=== PATIENT | female | born 1990 | race Caucasian/White ===

== ENCOUNTER 2016-08-19 21:35 | Inpatient (IN) | payer MEDICAID ==
[~2016-08-19] VITALS: Ht 154.9 cm; Wt 41.8 kg
[~2016-08-19 21:35] MED LIST: HUMALOG KW100 UNIT/1 SQ; HUMALOG MIX75/253 ML SC; HUMALOG100 U/M1; HUMULIN N PE100 U/ML SC; HUMULIN10 ML SC; KEFLEX 500MG.500 MG PO; LEVEMIR100 U/M2 SC; NORCO 325 MG-51 TAB PO; NOVOLOG MI100 UNITS1 SC; PROMETHAZINE12.5 M1 PO; PYRIDIUM 200MG200 MG PO; SEPTRA DS 800 M1 TAB PO
[2016-08-19 21:38] VITALS: BP 142/95
[2016-08-19 22:12] LABS: ARTERIAL ABE -20.1 MMOL/L (-2.4-+2.3); ARTERIAL PO2 124.1 MMHG (80-100); ARTERIAL TCO2 7.4 MMOL/L (23-27)
[2016-08-19 22:13] LABS: ALLEN'S TEST ACCEPTABLE; OXYGEN ROOM AIR
[2016-08-19 22:26] LABS: HEMOGLOBIN 13.8 g/dL (12.2-16.2); LYMPH # 0.8 K/mm3 (0.7-4.5); LYMPH % 8.7 % (10-50.0)
[2016-08-19 23:04] LABS: URINE BILIRUBIN - DIPSTICK NEGATIVE (NEG); URINE BLOOD 1+ (NEG)
[2016-08-19 23:09] LABS: NEUTROPHILS 85 % (42-76)
--- NOTE | 2016-08-19 23:09 | Emergency Room Report ---
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 N Clinical Suspician of Infection? N Mental Status: 1 - Regular (Normal Baseline) Sepsis Risk:Possible Sepsis Risk Have you (or family members/close friends) recently traveled outside the [place]? N If Yes, where/when: Have you had exposure to infectious disease within the past month? N TB? Other? Specify: Source patient, RN notes reviewed, family, old records Exam Limitations no limitations Comment vomiting today with dec po intake in this wf who is iddm Cardiac Chest Pain Chest pain indicative of cardiac No Timing/Duration this evening Severity moderate ALLERGIES Coded Allergies: aspirin (ITCHING 04/22/16) Home Medications Active Scripts HYDROCODONE/ACETAMINOPHEN ([place] 5-325 Tablet) 1 TAB PO BIDP PRN BREAKTHROUGH MOD TO SEV PAIN 2 Days Prov: 07/06/16 Reported Medications INSULIN NPL/INSULIN LISPRO (Humalog Mix 75-25 Kwikpen) 10 UNITS SC QAM #30 INSULIN NPL/INSULIN LISPRO (Humalog Mix 75-25 Kwikpen) 8 UNITS SC NIGHT ONLY Insulin Lispro (Humalog Kwikpen) 100 UNIT SQ Q2H #15 History Medical History General CAD? No Angina: No [place]: No Hypertension? No Hyperlipidemia? No CHF? No DVT? No PE? No COPD? No Asthma? No Anemia? No GERD? No Gastric ulcers? No GI Bleed? No Hernia? No Thyroid Problems? No Hypothyroidism? No CVA? No Seizures? No Diabetes? Yes Insulin Dependent: Yes Insulin Pump: No Home FSBS? Yes Renal Insuffiency? No End Stage Renal Disease? No UTI? Yes Stones? No GB Disease: No Nephritic Syndrome? No Asplenia? No Hepatitis? No Sickle Cell Disease? No Arthritis? No Migraines? No Cataracts? No Glaucoma? No MRSA? No HIV? No TB? No Anxiety? No Depression? No Cancer? No More? 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 Respiratory denies cough, denies shortness of breath, denies wheezing Cardiovascular denies chest pain, denies syncope Gastrointestinal see HPI, abdominal pain, denies diarrhea, denies vomiting Genitourinary denies: dysuria, frequency, hesitancy, hematuria. Musculoskeletal denies back pain, denies joint pain, denies joint swelling, denies neck pain Skin denies rash Psychiatric/Neurological denies headache, denies seizure Physical Exam Vital Signs Vital Signs Date Time Temp Pulse Resp B/P Pulse O2 O2 Flow FiO2 Ox Delivery Rate 08/20 0014 132 20 142/99 98 08/19 2341 132 20 135/91 100 08/19 2246 131 20 144/95 96 08/19 2138 98.6 130 20 142/95 100 - WBC >12,000 or <4,000 or 10% bands? 2 or more SIRS Criteria Met? B/P:142/99 MAP:110 Creatinine >2.0? UA output<0.5ml/kg/hr for 2 hrs? Platelet count >100,000? Lactate >2.0mmol/1? INR >1.2 or PTT > than 60 sec? Evidence of Organ Dysfunction? Provider documented clinical suspician of infection? N Sepsis Criteria Count: 2 Sepsis Risk: Possible Sepsis Risk General Appearance no apparent distress Eye Exam - bilateral eye PERRL, bilateral eye EOMI Ear, Nose, Throat normal ENT inspection Neck non-tender Respiratory Status No: respiratory distress. Lung Sounds bilateral: lungs clear. 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 No Results/Orders Laboratory Tests 08/19/166: Urine Color YELLOW, Urine Appearance CLEAR, Urine pH 6.0, Ur Specific [place] 1.025, Urine Protein 1+ H, Urine Ketones 3+ H, Urine Blood 1+ H, Urine Nitrate NEGATIVE, Urine Bilirubin NEGATIVE, Urine Urobilinogen 0.2, Ur Leukocyte Esterase 1+ H, Urine RBC 5-10, Urine WBC 5-10, Ur Squamous Epith Cells 3-5, Urine Bacteria 1+, Urine Mucus 1+, Urine Trichomonas 1+, Urine Glucose 2+ H 08/19/162215: Sodium 133 L, Potassium 6.2 *H, Chloride 93 L, Carbon Dioxide 13 L, BUN 11, Creatinine 1.0, Estimated Creat Clear 63, Estimated GFR (MDRD) 66, Glucose 519 * H, Calcium 9.4, Total Bilirubin 0.6, AST 74 H, ALT 100 H, Alkaline Phosphatase 285 H, Total Protein 8.3 H, Albumin 3.4, Globulin 4.9 H, Albumin/Globulin Ratio 0.7 L, WBC 9.4, RBC 4.57, Hgb 13.8, Hct 45.3, MCV 99.0 H, RDW 13.4, Plt Count 369, MPV 9.0, Gran % 89.4 H, Gran # 8.4 H, Total Counted 100, Lymphocytes % 8.7 L, Monocytes % 1.5 L, Eosinophils % 0.2, Basophils % 0.2, Neutrophils 85 H, Lymphocytes (Manual) 15, Lymphocytes # 0.8, Monocytes # 0.1, Eosinophils # 0.0, Basophils # 0.0, Platelet Estimate NORMAL, Anisocytosis 1+, PUBS MCHC 30.6 L, MCH 30.3, Acetone Level MODERATE 08/19/162206: ABG pH Pending, ABG pCO2 (Temp Corrct Pending, ABG pO2 (Temp Correct Pending, ABG HCO3 Pending, ABG O2 Sat (Calculated) Pending, ABG Base Excess Pending 08/19/162204: ABG pH 7.26 L, ABG pCO2 (Temp Corrct 15.7 L, ABG pO2 (Temp Correct 124.1 H, ABG HCO3 6.9 L, ABG Total CO2 7.4 L, ABG O2 Sat (Calculated) 98.0, ABG Base Excess -20.1 L, Nghia Test ACCEPTABLE, Blood Gas Comments RIGHT RADIAL Current Medication Orders Sig/Roberto Start time Last Medication Dose Route Stop Time Status Admin Ondansetron HCl 4 MG ONCE ONE 08/205 DC 08/20 IV 08/20 0016 0005 Ondansetron HCl 0 .STK-MED ONE 08/20 0001 DC .ROUTE Ondansetron HCl 4 MG ONCE ONE 08/19 2214 DC 08/19 IV 08/19 2215 221 Ondansetron HCl 0 .STK-MED ONE 08/19 2214 DC .ROUTE Sodium Chloride 10 ML PRN PRN 08/19 2199 AC IV 08/20 2147 Sodium Chloride 1,000 ML .Q1H1M 08/19 2199 DC 08/19 IV 08/19 Sodium Chloride 10 ML PRN PRN 08/19 2199 AC IV 08/20 2147 Orders Procedure Date/time Status URINALYSIS/COMPLETE 08/19 2258 Complete CULTURE, URINE 08/19 2255 Active DIFFERENTIAL-WBC 08/19 2215 Complete Acetone, Serum 08/19 2155 Complete 12 LEAD EKG-BESSON (INITIAL) 08/19 2149 Active ELECTROCARDIOGRAM REQUEST 08/19 2149 Active ARTERIAL BLOOD GAS REQUEST 08/19 2149 Active IV SALINE LOCK 08/19 2149 Active FSBS REQUEST BY CARE AREA 08/19 2149 Active CBC WITH AUTO DIFF 08/19 2149 Complete CHEM 12 PROFILE 08/19 2149 Complete CM/EKG CM/pipe coverer Rhythm Sinus Tachycardia EKG non-spec. ST/Twave chgs Departure Departure Time of Disposition 2307 Disposition Still a Patient Clinical Impression Primary Impression: DKA (diabetic ketoacidoses) Qualifiers: Diabetes mellitus type: type 1 Diabetes mellitus complication detail: without coma Qualified Code: E10.10 - Type 1 diabetes mellitus with ketoacidosis without coma Secondary Impressions: Diabetes mellitus, insulin dependent (IDDM), controlled Condition STABLE Referrals FRANCI JACK, NUVIA (Family) ED Critical Care Critical Care Yes Time spent 30-74 min Vital system(s) involved: Metabolic Failure I was present at bedside for Coordinating pt's care, Interpreting EKGs/Strips , Reviewing lab results, Discussing pt condition at 0018
--- NOTE | 2016-08-19 23:09 | Emergency Room Report ---
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 N Clinical Suspician of Infection? N Mental Status: 1 - Regular (Normal Baseline) Sepsis Risk:Possible Sepsis Risk Have you (or family members/close friends) recently traveled outside the [place]? N If Yes, where/when: Have you had exposure to infectious disease within the past month? N TB? Other? Specify: Source patient, RN notes reviewed, family, old records Exam Limitations no limitations Comment vomiting today with dec po intake in this wf who is iddm Cardiac Chest Pain Chest pain indicative of cardiac No Timing/Duration this evening Severity moderate ALLERGIES Coded Allergies: aspirin (ITCHING 04/22/16) Home Medications Active Scripts HYDROCODONE/ACETAMINOPHEN ([place] 5-325 Tablet) 1 TAB PO BIDP PRN BREAKTHROUGH MOD TO SEV PAIN 2 Days Prov: 07/06/16 Reported Medications INSULIN NPL/INSULIN LISPRO (Humalog Mix 75-25 Kwikpen) 10 UNITS SC QAM #30 INSULIN NPL/INSULIN LISPRO (Humalog Mix 75-25 Kwikpen) 8 UNITS SC NIGHT ONLY Insulin Lispro (Humalog Kwikpen) 100 UNIT SQ Q2H #15 History Medical History General CAD? No Angina: No [place]: No Hypertension? No Hyperlipidemia? No CHF? No DVT? No PE? No COPD? No Asthma? No Anemia? No GERD? No Gastric ulcers? No GI Bleed? No Hernia? No Thyroid Problems? No Hypothyroidism? No CVA? No Seizures? No Diabetes? Yes Insulin Dependent: Yes Insulin Pump: No Home FSBS? Yes Renal Insuffiency? No End Stage Renal Disease? No UTI? Yes Stones? No GB Disease: No Nephritic Syndrome? No Asplenia? No Hepatitis? No Sickle Cell Disease? No Arthritis? No Migraines? No Cataracts? No Glaucoma? No MRSA? No HIV? No TB? No Anxiety? No Depression? No Cancer? No More? 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 Respiratory denies cough, denies shortness of breath, denies wheezing Cardiovascular denies chest pain, denies syncope Gastrointestinal see HPI, abdominal pain, denies diarrhea, denies vomiting Genitourinary denies: dysuria, frequency, hesitancy, hematuria. Musculoskeletal denies back pain, denies joint pain, denies joint swelling, denies neck pain Skin denies rash Psychiatric/Neurological denies headache, denies seizure Physical Exam Vital Signs Vital Signs Date Time Temp Pulse Resp B/P Pulse O2 O2 Flow FiO2 Ox Delivery Rate 08/20 0014 132 20 142/99 98 08/19 2341 132 20 135/91 100 08/19 2246 131 20 144/95 96 08/19 2138 98.6 130 20 142/95 100 - WBC >12,000 or <4,000 or 10% bands? 2 or more SIRS Criteria Met? B/P:142/99 MAP:110 Creatinine >2.0? UA output<0.5ml/kg/hr for 2 hrs? Platelet count >100,000? Lactate >2.0mmol/1? INR >1.2 or PTT > than 60 sec? Evidence of Organ Dysfunction? Provider documented clinical suspician of infection? N Sepsis Criteria Count: 2 Sepsis Risk: Possible Sepsis Risk General Appearance no apparent distress Eye Exam - bilateral eye PERRL, bilateral eye EOMI Ear, Nose, Throat normal ENT inspection Neck non-tender Respiratory Status No: respiratory distress. Lung Sounds bilateral: lungs clear. 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 No Results/Orders Laboratory Tests 08/19/166: Urine Color YELLOW, Urine Appearance CLEAR, Urine pH 6.0, Ur Specific [place] 1.025, Urine Protein 1+ H, Urine Ketones 3+ H, Urine Blood 1+ H, Urine Nitrate NEGATIVE, Urine Bilirubin NEGATIVE, Urine Urobilinogen 0.2, Ur Leukocyte Esterase 1+ H, Urine RBC 5-10, Urine WBC 5-10, Ur Squamous Epith Cells 3-5, Urine Bacteria 1+, Urine Mucus 1+, Urine Trichomonas 1+, Urine Glucose 2+ H 08/19/162215: Sodium 133 L, Potassium 6.2 *H, Chloride 93 L, Carbon Dioxide 13 L, BUN 11, Creatinine 1.0, Estimated Creat Clear 63, Estimated GFR (MDRD) 66, Glucose 519 * H, Calcium 9.4, Total Bilirubin 0.6, AST 74 H, ALT 100 H, Alkaline Phosphatase 285 H, Total Protein 8.3 H, Albumin 3.4, Globulin 4.9 H, Albumin/Globulin Ratio 0.7 L, WBC 9.4, RBC 4.57, Hgb 13.8, Hct 45.3, MCV 99.0 H, RDW 13.4, Plt Count 369, MPV 9.0, Gran % 89.4 H, Gran # 8.4 H, Total Counted 100, Lymphocytes % 8.7 L, Monocytes % 1.5 L, Eosinophils % 0.2, Basophils % 0.2, Neutrophils 85 H, Lymphocytes (Manual) 15, Lymphocytes # 0.8, Monocytes # 0.1, Eosinophils # 0.0, Basophils # 0.0, Platelet Estimate NORMAL, Anisocytosis 1+, PUBS MCHC 30.6 L, MCH 30.3, Acetone Level MODERATE 08/19/162206: ABG pH Pending, ABG pCO2 (Temp Corrct Pending, ABG pO2 (Temp Correct Pending, ABG HCO3 Pending, ABG O2 Sat (Calculated) Pending, ABG Base Excess Pending 08/19/162204: ABG pH 7.26 L, ABG pCO2 (Temp Corrct 15.7 L, ABG pO2 (Temp Correct 124.1 H, ABG HCO3 6.9 L, ABG Total CO2 7.4 L, ABG O2 Sat (Calculated) 98.0, ABG Base Excess -20.1 L, Nghia Test ACCEPTABLE, Blood Gas Comments RIGHT RADIAL Current Medication Orders Sig/Roberto Start time Last Medication Dose Route Stop Time Status Admin Ondansetron HCl 4 MG ONCE ONE 08/205 DC 08/20 IV 08/20 0016 0005 Ondansetron HCl 0 .STK-MED ONE 08/20 0001 DC .ROUTE Ondansetron HCl 4 MG ONCE ONE 08/19 2214 DC 08/19 IV 08/19 2215 221 Ondansetron HCl 0 .STK-MED ONE 08/19 2214 DC .ROUTE Sodium Chloride 10 ML PRN PRN 08/19 2199 AC IV 08/20 2147 Sodium Chloride 1,000 ML .Q1H1M 08/19 2199 DC 08/19 IV 08/19 Sodium Chloride 10 ML PRN PRN 08/19 2199 AC IV 08/20 2147 Orders Procedure Date/time Status URINALYSIS/COMPLETE 08/19 2258 Complete CULTURE, URINE 08/19 2255 Active DIFFERENTIAL-WBC 08/19 2215 Complete Acetone, Serum 08/19 2155 Complete 12 LEAD EKG-BESSON (INITIAL) 08/19 2149 Active ELECTROCARDIOGRAM REQUEST 08/19 2149 Active ARTERIAL BLOOD GAS REQUEST 08/19 2149 Active IV SALINE LOCK 08/19 2149 Active FSBS REQUEST BY CARE AREA 08/19 2149 Active CBC WITH AUTO DIFF 08/19 2149 Complete CHEM 12 PROFILE 08/19 2149 Complete CM/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 ST/Twave chgs Departure Departure Time of Disposition 2307 Disposition Still a Patient Clinical Impression Primary Impression: DKA (diabetic ketoacidoses) Qualifiers: Diabetes mellitus type: type 1 Diabetes mellitus complication detail: without coma Qualified Code: E10.10 - Type 1 diabetes mellitus with ketoacidosis without coma Secondary Impressions: Diabetes mellitus, insulin dependent (IDDM), controlled Condition STABLE Referrals FRANCI JACK, NUVIA (Family) ED Critical Care Critical Care Yes Time spent 30-74 min Vital system(s) involved: Metabolic Failure I was present at bedside for Coordinating pt's care, Interpreting EKGs/Strips , Reviewing lab results, Discussing pt condition at 0018
[2016-08-20] VITALS (25 sets, daily range): BP systolic 111–140; BP diastolic 71–98
--- NOTE | 2016-08-20 07:15 | PHARMACY CLINIC NOTE ---
Patient Demographics Patient Demographics Admission date: 08/20/16 Date: 08/20/16 Time: 07 Allergies Coded Allergies: aspirin (ITCHING 04/22/16) HEIGHT- FT: 5 IN: 1.00 K.[id number] VTE General Information Labs: Laboratory Tests 08/19 2216 Hematology Hgb (12.2 - 16.2 g/dL) 13.8 Hct (37.0 - 47.0 %) 45.3 Plt Count (142 - 424 K/mm3) 369 Disclaimer The following section includes nursing documentation that has been pulled in for pharmacy review. Patient's VTE score: 0 Patient's VTE Risk: VERY LOW RISK Clinical trial participant? No VTE prophylaxis [id number] VTE prophylaxis ordered? Yes Type of prophylaxis/treatment: RADHA at 0714
--- NOTE | 2016-08-20 07:30 | HISTORY AND PHYSICAL REPORT ---
Demographics: Admit date: 08/19/16 Chief complaint: vomiting PRIMARY DIAGNOSIS: DKA Allergies: Coded Allergies: aspirin (ITCHING 04/22/16) History of present illness: History of present illness: this wf presented to the [facility] ed last pm with vomiting and nausea with abd pain and mental status change and dec po intake - she is a iddm and her glu had been elevated - in the ed it was discovered that she was in dka and she was admitted with iv insulin drip and fluids Past medical history: Family HX Family Hx Insignificant Yes Immunization HX DT/Tetanus UNKNOWN Flu 2015-FSN Pneumonia Refuses Other UNABLE TO ANSWER QUESTIONS TB Test in last year No General CAD? No Angina: No [place]: No Hypertension? No Hyperlipidemia? No CHF? No DVT? No PE? No COPD? No Asthma? No Anemia? No GERD? No Gastric ulcers? No GI Bleed? No Hernia? No Thyroid Problems? No Hypothyroidism? No CVA? No Seizures? No Diabetes? Yes Insulin Dependent: Yes Insulin Pump: No Home FSBS? Yes Renal Insuffiency? No UTI? Yes Stones? No GB Disease: No Nephritic Syndrome? No Asplenia? No Hepatitis? No Sickle Cell Disease? No Arthritis? No Migraines? No Cataracts? No Glaucoma? No MRSA? No HIV? No TB? No Anxiety? No Depression? No Cancer? No More? No Past Surgical HX Previous Surgery?Y BY ANGEL LUIS Current home meds: Active Scripts HYDROCODONE/ACETAMINOPHEN ([place] 5-325 Tablet) 1 TAB PO BIDP PRN BREAKTHROUGH MOD TO SEV PAIN 2 Days Prov: 07/06/16 Reported Medications INSULIN NPL/INSULIN LISPRO (Humalog Mix 75-25 Kwikpen) 10 UNITS SC QAM #30 INSULIN NPL/INSULIN LISPRO (Humalog Mix 75-25 Kwikpen) 8 UNITS SC NIGHT ONLY Insulin Lispro (Humalog Kwikpen) 100 UNIT SQ Q2H #15 Social Hx: Smoking HX Tobacco Yes Type Cigarettes Packs/day < 1 PACK Are you/the child exposed to second-hand smoke: Yes Alcohol Alcohol: No Hx of Drug Use Drug Use? Yes Drug(s) of Choice: norco Patien't marital status is single Patient's support system is good Review of systems: Constitutional see HPI, weakness. Eyes No: drainage. Ears, Nose, Mouth, Throat No ear pain, No epistaxis, No throat pain, No throat swelling Respiratory No: cough, shortness of breath. Cardiovascular see HPI, No chest pain, No palpitations, No syncope, other Gastrointestinal/Abdominal see HPI, No abdominal pain, No nausea, No poor appetite, No poor fluid intake, No vomiting Genitourinary No: dysuria, frequency, hesitancy, hematuria. Musculoskeletal No: back pain, joint pain, joint swelling, neck pain. Skin No: rash. Neurological Yes: see HPI, headache. No: numbness, seizure disorder. Psychiatric No: depressed. Exam: Lab data for last 24 hours: Laboratory Tests 08/20/16 0713: POC Glucose 123 H 08/20/16 0616: POC Glucose 172 H 08/20/16 0525: Sodium 137, Potassium 4.3, Chloride 102, Carbon Dioxide 12 L, BUN 7, Creatinine 0.9, Estimated Creat Clear 60, Estimated GFR (MDRD) 75, Glucose 177 H, Calcium 8.6, Acetone Level SMALL 08/20/16 0512: POC Glucose 146 H 08/20/16 0404: POC Glucose 109 08/20/16 0308: POC Glucose 202 H 08/20/16 0215: POC Glucose 337 *H 08/20/16 0210: Phosphorus 4.0, Magnesium 1.7 08/20/16 0210: Sodium 136, Potassium 4.8, Chloride 98, Carbon Dioxide 6 *L, BUN 10, Creatinine 1.0, Estimated Creat Clear 63, Estimated GFR (MDRD) 66, Glucose 388 H, Calcium 8.3 L 08/20/16 0144: POC Glucose 421 *H 08/19/16 2256: Urine Color YELLOW, Urine Appearance CLEAR, Urine pH 6.0, Ur Specific [place] 1.025, Urine Protein 1+ H, Urine Ketones 3+ H, Urine Blood 1+ H, Urine Nitrate NEGATIVE, Urine Bilirubin NEGATIVE, Urine Urobilinogen 0.2, Ur Leukocyte Esterase 1+ H, Urine RBC 5-10, Urine WBC 5-10, Ur Squamous Epith Cells 3-5, Urine Bacteria 1+, Urine Mucus 1+, Urine Trichomonas 1+, Urine Glucose 2+ H 08/19/16 2216: Sodium 133 L, Potassium 6.2 *H, Chloride 93 L, Carbon Dioxide 13 L, BUN 11, Creatinine 1.0, Estimated Creat Clear 63, Estimated GFR (MDRD) 66, Glucose 519 * H, Calcium 9.4, Total Bilirubin 0.6, AST 74 H, ALT 100 H, Alkaline Phosphatase 285 H, Total Protein 8.3 H, Albumin 3.4, Globulin 4.9 H, Albumin/Globulin Ratio 0.7 L, WBC 9.4, RBC 4.57, Hgb 13.8, Hct 45.3, MCV 99.0 H, RDW 13.4, Plt Count 369, MPV 9.0, Gran % 89.4 H, Gran # 8.4 H, Total Counted 100, Lymphocytes % 8.7 L, Monocytes % 1.5 L, Eosinophils % 0.2, Basophils % 0.2, Neutrophils 85 H, Lymphocytes (Manual) 15, Lymphocytes # 0.8, Monocytes # 0.1, Eosinophils # 0.0, Basophils # 0.0, Platelet Estimate NORMAL, Anisocytosis 1+, PUBS MCHC 30.6 L, MCH 30.3, Acetone Level MODERATE 08/19/162204: ABG pH 7.26 L, ABG pCO2 (Temp Corrct 15.7 L, ABG pO2 (Temp Correct 124.1 H, ABG HCO3 6.9 L, ABG Total CO2 7.4 L, ABG O2 Sat (Calculated) 98.0, ABG Base Excess -20.1 L, Nghia Test ACCEPTABLE, Blood Gas Comments RIGHT RADIAL Microbiology 08/19 2255 URINE CC: Urine Culture - RECD Admission vital signs: 1ST Vital Signs Result Date Time Pulse Ox 100 08/19 2137 B/P 142/95 08/19 2137 Temp 98.6 08/19 2137 Pulse 130 08/19 2137 Resp 20 08/19 2137 O2 Delivery ROOM AIR 08/20 0200 Exam General appearance: awake Eyes: PERRLA ENT: dry mucous membranes Neck: no carotid bruit, no JVD Cardiovascular: tachycardia Respiratory: clear to auscultation, no respiratory distress ABD: no rebound Genitourinary: no hematuria Extremities: moves all Musculoskeletal: motor intact Skin: dry 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 Diabetes mellitus, insulin dependent (IDDM), controlled 2. DKA (diabetic ketoacidoses) 3. Trichomonas vaginitis Plan: will continue per protocol at 2612
--- NOTE | 2016-08-20 08:22 | RADIOLOGY REPORT PS360 ---
CHEST-PORTABLE HISTORY: Shortness of breath sob ORDERING PHYSICIAN: Miguel Gomez MD PATIENT AGE: 26 years COMPARISON: None available FINDINGS: The cardiomediastinal silhouette and pulmonary vascularity are within normal limits. The lungs are clear without infiltrates, suspicious nodules, or pleural effusions. No acute bony abnormalities. IMPRESSION: Negative chest, no acute finding
[2016-08-20] MEDS ORDERED: BACLOFEN20 MG PO (09:25)
[2016-08-20] MEDS ORDERED: BUSPAR 10MG TAB10 MG PO (09:25)
[2016-08-20] MEDS ORDERED: BENTYL10 MG PO (09:26)
[2016-08-20] MEDS ORDERED: LISINOPRIL2.5 MG PO (09:26)
[2016-08-20] MEDS ORDERED: QUETIAPINE FUMA50 M1 PO (09:26)
[2016-08-20] MEDS ORDERED: ATORVASTATIN CA10 M1 PO (09:27)
[2016-08-21] VITALS (18 sets, daily range): BP systolic 102–137; BP diastolic 64–94
[2016-08-21 05:51] LABS: LYMPH # 2.3 K/mm3 (0.7-4.5); LYMPH % 26.9 % (10-50.0)
[2016-08-21 05:58] LABS: HEMOGLOBIN 11.8 g/dL (12.2-16.2)
--- NOTE | 2016-08-21 09:21 | ACUTE CARE PROGRESS NOTE (QUA) ---
Progress Notes Subjective Date 08/21/16 Time 0918 Patient/family reports: feeling better, no complaints Nursing reports: alert, no complaints Objective Findings Laboratory Tests 08/21/16 0854: POC Glucose 155 H 08/21/16 0803: POC Glucose 142 H 08/21/16 0701: POC Glucose 117 H 08/21/16 0604: POC Glucose 198 H 08/21/16 0530: Sodium 137, Potassium 3.2 L, Chloride 104, Carbon Dioxide 23, BUN 3 L, Creatinine 0.8, Estimated Creat Clear 67, Estimated GFR (MDRD) 85, Glucose 278 H, Calcium 8.2 L, WBC 8.4, RBC 3.94 L, Hgb 11.8 L, Hct 36.7 L, MCV 93.0, RDW 13.3, Plt Count 271, MPV 8.3, Gran % 68.8, Gran # 5.8, Lymphocytes % 26.9, Monocytes % 3.6, Eosinophils % 0.5, Basophils % 0.1, Lymphocytes # 2.3, Monocytes # 0.3, Eosinophils # 0.1, Basophils # 0.0, PUBS MCHC 32.0, MCH 29.7, Acetone Level TRACE 08/21/16 0404: POC Glucose 124 H 08/21/16 0206: POC Glucose 150 H 08/21/16 0105: POC Glucose 195 H 08/21/16 0050: Phosphorus 2.3 L, Magnesium 1.5 08/20/16 2357: POC Glucose 86 08/20/16 2259: POC Glucose 103 08/20/16 2205: POC Glucose 148 H 08/20/16 2104: POC Glucose 145 H 08/20/16 2005: POC Glucose 98 08/20/16 1900: POC Glucose 176 H 08/20/16 1820: Acetone Level SMALL 08/20/16 1803: POC Glucose 188 H 08/20/16 1636: POC Glucose 88 08/20/16 1516: POC Glucose 138 H 08/20/16 1400: POC Glucose 115 H 08/20/16 1320: POC Glucose 82 08/20/16 1210: Phosphorus 2.5, Magnesium 1.3 L 08/20/16 1210: Sodium 135 L, Potassium 3.7, Chloride 102, Carbon Dioxide 16 L, BUN 4 L, Creatinine 0.9, Estimated Creat Clear 60, Estimated GFR (MDRD) 75, Glucose 187 H, Calcium 8.2 L, Acetone Level SMALL 08/20/16 1156: POC Glucose 203 H 08/20/16 1026: POC Glucose 144 H Vital Signs Date Time Temp Pulse Resp B/P Pulse O2 O2 Flow FiO2 Ox Delivery Rate 08/21 0900 114 16 118/84 100 ROOM AIR 02/03 0858 98.5 104 16 102/80 98 02/03 0800 98.5 104 16 102/80 98 ROOM AIR 02/03 0700 98 15 123/94 99 ROOM AIR 02/03 0600 98 16 122/85 98 ROOM AIR 02/03 0500 103 16 121/78 100 ROOM AIR 02/03 0400 97.7 108 17 108/67 96 02/03 0400 97.7 108 17 108/67 96 ROOM AIR 02/03 0300 106 16 105/76 99 02/03 0200 109 20 137/91 99 ROOM AIR 02/03 0100 113 18 121/90 98 ROOM AIR 02/03 0000 105 16 119/84 100 ROOM AIR 02/ 2300 112 20 132/90 99 ROOM AIR 02/02 2218 120 16 123/85 94 02/02 2100 126 22 128/88 100 02/ 2030 118 18 119/84 98 /2011 98.6 118 18 138/98 100 02/02 1900 117 16 133/86 99 02/02 1800 98.6 118 18 138/98 100 ROOM AIR 02/02 1800 98.7 121 18 111/77 100 02/02 1700 98.7 121 18 111/77 100 ROOM AIR 02/02 1600 98.6 118 18 121/86 100 ROOM AIR 02/02 1500 98.6 122 18 132/93 100 ROOM AIR 02/02 1400 98.6 122 18 135/89 100 ROOM AIR 02/02 1300 98.6 117 18 129/84 100 ROOM AIR 02/02 1200 98.6 126 18 112/72 100 ROOM AIR 02/02 1100 98.6 125 18 126/75 100 ROOM AIR 02/02 1000 98.6 122 18 121/75 100 ROOM AIR Current Medications Acetaminophen 0 .STK-MED ONE PO (DC) Promethazine HCl 0 .STK-MED ONE .ROUTE (DC) Acetaminophen 0 .STK-MED ONE PO (DC) Promethazine HCl 0 .STK-MED ONE .ROUTE (DC) Sodium Chloride 25 ML .STK-MED ONE IV (DC) Ondansetron HCl 0 .STK-MED ONE .ROUTE (DC) Promethazine HCl 25 MG Q6HP PRN IV Sodium Chloride 1,000 ML .STK-MED ONE IV (DC) Diagnostic Test (Pha) 1 EACH Q1 FS Acetaminophen 650 MG Q4HP PRN PO Nicotine 21 MG DAILYP PRN TD Ondansetron HCl 4 MG Q6HP PRN IV Sodium Chloride 1,000 ML .Q8H IV Insulin Human Regular 100 UNITS .Q25H IV Sodium Chloride 100 ML Sodium Chloride 10 ML PRN PRN IV Sodium Chloride 10 ML PRN PRN IV (DC) Last VS-Temp:98.5 B/P:118/84 Pulse:114 Resp:16 SaO2:100 ROOM AIR Last weight lbs:92 oz:1 K.759 Method:Floor Scales Exam General appearance: normal appearance, alert, active, awake, no acute distress Eyes: normal exam ENT: normal exam Neck: normal inspection, full range of motion Cardiovascular: normal exam, regular rate & rhythm Respiratory: normal exam, clear to auscultation, good air movement, no respiratory distress ABD: normal exam, normal bowel sounds, soft Genitourinary: normal voiding & quantity Extremities: normal exam, moves all Musculoskeletal: normal exam Skin: normal exam, intact, warm Neuro: normal exam, alert, intact, oriented Reviewed: allergies, medications, vital signs, lab results, consult note Assessment/Plan Problem List 1. Diabetes mellitus, insulin dependent (IDDM), controlled 2. DKA (diabetic ketoacidoses) Qualifiers: Diabetes mellitus type: type 1 Diabetes mellitus complication detail: without coma Qualified Code: E10.10 - Type 1 diabetes mellitus with ketoacidosis without coma 3. Trichomonas vaginitis Patient condition Stable Plan: order additional tests This inpt stay is expected to cross 2 MNs from start of care Yes Comments: rounded with misty, recheck acetone if neg stop drip and poss dc later today at 0921
--- NOTE | 2016-08-21 16:59 | DISCHARGE SUMMARY STANDARD ---
Demographics Admit date: 08/19/16 Discharge date: 08/21/16 History of present illness History of present illness this wf presented to the [facility] ed last pm with vomiting and nausea with abd pain and mental status change and dec po intake - she is a iddm and her glu had been elevated - in the ed it was discovered that she was in dka and she was admitted with iv insulin drip and fluids Hospital Course Hospital Course: DKA- INSULIN DRIP, monitor of finger sticks,hydration, monitor of labs. Discharge diagnoses Problem List 1. Diabetes mellitus, insulin dependent (IDDM), controlled 2. DKA (diabetic ketoacidoses) 3. Trichomonas vaginitis Medications Medications: Discharge meds are as noted. Follow up Follow up in office in: 5 DAYS with: FRANCI JACK DIXIE Comment: pt sitting up in bed eatting and states she feels better and is ready to be dc home, rounded with misty at 5800
--- NOTE | 2016-08-21 16:59 | DISCHARGE SUMMARY STANDARD ---
Demographics Admit date: 08/19/16 Discharge date: 08/21/16 History of present illness History of present illness this wf presented to the [facility] ed last pm with vomiting and nausea with abd pain and mental status change and dec po intake - she is a iddm and her glu had been elevated - in the ed it was discovered that she was in dka and she was admitted with iv insulin drip and fluids Hospital Course Hospital Course: DKA- INSULIN DRIP, monitor of finger sticks,hydration, monitor of labs. Discharge diagnoses Problem List 1. Diabetes mellitus, insulin dependent (IDDM), controlled 2. DKA (diabetic ketoacidoses) 3. Trichomonas vaginitis Medications Medications: Discharge meds are as noted. Follow up Follow up in office in: 5 DAYS with: FRANCI JACK DIXIE Comment: pt sitting up in bed eatting and states she feels better and is ready to be dc home, rounded with misty at [id number]
== END 2016-08-21 18:30 | disposition home or self-care (01) | DRG 639 ==
LOC: ER 21:35 → 2ND 08-20 00:16
PROVIDERS: Emergency Medicine
DX: E13.10 Other specified diabetes mellitus with ketoacidosis without coma (principal); A59.01 Trichomonal vulvovaginitis; Z79.4 Long term (current) use of insulin
CPT/HCPCS: J2405

== ENCOUNTER → 2017-04-09 | Outpatient (CLI) | payer MEDICAID ==
[~2017-04-09] MED LIST changes: +ATORVASTATIN CA10 M1 PO; +BACLOFEN20 MG PO; +BENTYL10 MG PO; +BUSPAR 10MG TAB10 MG PO; +LISINOPRIL2.5 MG PO; +QUETIAPINE FUMA50 M1 PO
[2017-04-09 16:05] LABS: HEMOGLOBIN 13.8 g/dL (12.2-16.2); LYMPH # 2.4 K/mm3 (0.7-4.5); LYMPH % 23.1 % (10-50.0)
[2017-04-09 18:23] LABS: BUN 14 mg/dL (7-18); GFR (ESTIMATED) 74 ML/MIN (59-)
== END ==
LOC: LAB 15:27
PROVIDERS: Nurse Practitioner Obstetrics & Gynecology
DX: R10.2 Pelvic and perineal pain (principal); Z01.812 Encounter for preprocedural laboratory examination

== ENCOUNTER 2017-06-07 19:49 | Inpatient (IN) | payer MEDICAID ==
[~2017-06-07] VITALS: Ht 154.9 cm; Wt 56.0 kg
[2017-06-07 20:03] VITALS: BP 158/105
--- OUTSIDE RECORDS SUMMARY | 2017-06-07 20:12 | External Medical Summary Rpt | CCD ---
Demographics Address [address] [place] [id number] Preferred Language Irish Marital Status Unknown Mormonism Affiliation Unknown Race W Ethnic Group Unknown Author Author [facility] Organization [facility] Address Unknown Phone Unavailable Purpose Continuity of Care Document - through 2016
--- OUTSIDE RECORDS SUMMARY | 2017-06-07 20:12 | External Medical Summary Rpt | CCD ---
Demographics Address [address] [place] [address] Home Phone Preferred Language Czech Marital Status Unknown Congregational Affiliation Unknown Race Unknown Ethnic Group Unknown Author Author , LARA Organization [facility] Address Unknown Phone [email or web address] Purpose Continuity of Care Document - 12-17-2011 through 2016 Results Labs Lab Lab Date Result Refere Interp Status Commen Order Detail nces retati t Range on Protein [Presence] in Urine (03-25-2017 14:35) Protein 161.0 0.0mg High complet 017 /dL - ed [Presen 14:35 11.9m ce] in g/dL Urine Urinalysis dipstick W Reflex Microscopic panel in Urine (03-25-2017 14:35) Bacteri 1+ O complet a 017 ed [Presen 14:35 ce] in Urine sedimen t by Light microsc opy Erythro OCC 0 complet cytes 017 ed [Presen 14:35 ce] in Urine sedimen t by Light microsc opy Epithel TNTC 0#/hp complet ial 017 f - ed cells.s 14:35 5#/hp quamous f [Presen ce] in Urine sedimen t by Microsc opy high power field Leukocy 5-10 O complet liseth 017 wbc/hpf ed [#/volu 14:35 me] in Urine Urinalysis dipstick W Reflex Microscopic panel in Urine (03-25-2017 14:35) Appeara SL CLEAR complet nce of 017 CLOUDY ed Urine 14:35 Bilirub NEGATIV NEG complet in 017 E ed [Presen 14:35 ce] in Urine by Test strip Erythro 2+ NEG Abnorma complet cytes 017 l ed [Presen 14:35 ce] in Urine Color YELLOW YELLOW complet of 017 ed Urine 14:35 Ketones 1+ NEG Abnorma complet 017 l ed [Presen 14:35 ce] in Urine by Automat ed test strip Mucus NEGATIV NEG complet [Presen 017 E ed ce] in 14:35 Urine sedimen t by Light microsc opy Nitrite POSITIV NEG Abnorma complet 017 E l ed [Presen 14:35 ce] in Urine by Test strip Urobili 0.2 NEG complet nogen 017 ed [Presen 14:35 ce] in Urine by Test strip Drugs identified in Urine by Screen method (02-22-2017 13:13) Ampheta NEGATIV <1000 complet mine 017 E ed [Presen 13:13 ce] in Urine by Screen method 11-Hydr POSITIV <50 Abnorma complet oxy 017 E l ed delta-9 13:13 tetrahy drocann abinol [Presen ce] in Unspeci fied specime n Hemoglobin A1c in Blood (12-15-2016 15:00) Hemoglo 9.5 % 0.0% High complet bin A1c 017 - ed in 15:00 7.0% Blood
--- OUTSIDE RECORDS SUMMARY | 2017-06-07 20:12 | External Medical Summary Rpt | CCD ---
Demographics Address [address] [place] [address] Home Phone Preferred Language [place] Citizen Marital Status Unknown Sabianism Affiliation Unknown Race Unknown Ethnic Group Unknown Author Author , LARA Organization [facility] Address Unknown Phone [email or web address] Purpose Continuity of Care Document - 12-17-2011 [...]
--- OUTSIDE RECORDS SUMMARY | 2017-06-07 20:12 | External Medical Summary Rpt | CCD ---
Demographics Preferred Language [place] Marital Status Unknown Scientology Affiliation Unknown Race Unknown Ethnic Group Unknown Author Author , LARA BERMUDEZ Address Unknown Phone Immunization No patient found.
--- OUTSIDE RECORDS SUMMARY | 2017-06-07 20:12 | External Medical Summary Rpt | CCD ---
Demographics Address [address] [place] [id number] Preferred Language Wallisian Marital Status Unknown Restorationist Affiliation Unknown Race W Ethnic Group Unknown Author Author [facility] Organization [facility] Address Unknown Phone Unavailable Purpose Continuity of Care Document - through 2016
--- OUTSIDE RECORDS SUMMARY | 2017-06-07 20:12 | External Medical Summary Rpt | CCD ---
Demographics Preferred Language [place] Marital Status Unknown Religion Affiliation Unknown Race Unknown Ethnic Group Unknown Author Author , LARA BERMUDEZ Address Unknown Phone Immunization No patient found.
--- OUTSIDE RECORDS SUMMARY | 2017-06-07 20:14 | External Medical Summary Rpt ---
Demographics Address [address] [place] [address] Home Phone Preferred Language Unknown Marital Status Unknown Cheondoism Affiliation Unknown Race Unknown Ethnic Group Unknown Author Author CHRISKEESHA Mac, [employer] Organization [employer] Address Unknown Phone Unavailable Results Glucose [Mass/volume] in Capillary blood by Glucometer Observa Value Referen Units Interpr Notes Date tion ce etation Range Glucose 70 - 110 mg/dl High No Sep 25 [Mass/vol informati 2017 ume] in on in 11:01 AM Capillary source blood by data Glucomete r Glucose [Mass/volume] in Capillary blood by Glucometer Observa Value Referen Units Interpr Notes Date tion ce etation Range Glucose 70 - 110 mg/dl High No Sep 25 [Mass/vol informati 2017 9:42 ume] in on in AM Capillary source blood by data Glucomete r Glucose [Mass/volume] in Capillary blood by Glucometer Observa Value Referen Units Interpr Notes Date tion ce etation Range Glucose 70 - 110 mg/dl High No Sep 25 [Mass/vol alert informati 2017 8:10 ume] in on in AM Capillary source blood by data Glucomete r Basic metabolic panel in Blood Observa Value Referen Units Interpr Notes Date tion ce etation Range Urea 7 - 18 mg/dL Normal No Sep 22 nitrogen informati 2017 3:29 [Mass/vol on in PM ume] in source Serum or data Plasma Calcium 8.5 - mg/dL Normal No Sep 22 [Mass/vol 10.1 informati 2017 3:29 ume] in on in PM Serum or source Plasma data Chloride 98 - 107 mmoL/L Normal No Sep 22 [Moles/vo informati 2017 3:29 lume] in on in PM Serum or source Plasma data Carbon 21.0 - mmoL/L Normal No Sep 22 dioxide, 32.0 informati 2017 3:29 total on in PM [Moles/vo source lume] in data Serum or Plasma Creatinin 0.55 - mg/dL Normal No Sep 22 e 1.02 informati 2017 3:29 [Mass/vol on in PM ume] in source Serum or data Plasma Estimated 59- ML/MIN No REFERENCE Sep 22 informati RANGE: 2017 3:29 glomerula on in >60 PM r source ML/MIN/1. filtratio data 73 SQUARE n rate METERSIf (GF this patient is -A merican, then multiply theresult by 1.210. Glucose 74 - 106 mg/dL High No Sep 22 [Mass/vol informati 2017 3:29 ume] in on in PM Serum or source Plasma data Potassium 3.5 - 5.1 mmoL/L Normal No Sep 22 informati 2017 3:29 [Moles/vo on in PM lume] in source Serum or data Plasma Sodium 136 - 145 mmoL/L Normal No Sep 22 [Moles/vo informati 2017 3:29 lume] in on in PM Serum or source Plasma data CBC W Auto Differential panel in Blood Observa Value Referen Units Interpr Notes Date tion ce etation Range Basophils 0 - 0.2 K/MM3 Normal No Sep 22 informati 2017 3:29 [#/volume on in PM ] in source Blood by data Automated count Basophils 0.1 - 2.0 % Normal No Sep 22 /100 informati 2017 3:29 leukocyte on in PM s in source Blood by data Automated count Eosinophi 0.0 - 0.4 K/mm3 Normal No Sep 22 ls informati 2017 3:29 [#/volume on in PM ] in source Blood by data Automated count Eosinophi 0.1 - % Normal No Sep 22 ls/100 12.0 informati 2016 3:29 leukocyte on in PM s in source Blood by data Automated count Granulocy 1.8 - 7.8 K/mm3 Normal No Sep 22 ruben informati 2017 3:29 [#/volume on in PM ] in source Blood by data Automated count Granulocy 37.0 - % Normal No Sep 22 ruben/100 80.0 informati 2016 3:29 leukocyte on in PM s in source Blood by data Automated count Hematocri 37.0 - % Normal No Sep 22 t [Volume 47.0 informati 2017 3:29 on in PM Fraction] source of Blood data Hemoglobi 12.2 - g/dL Normal No Sep 22 n 16.2 informati 2016 3:29 [Mass/vol on in PM ume] in source Blood data Lymphocyt 0.7 - 4.5 K/mm3 Normal No Sep 22 es informati 2016 3:29 [#/volume on in PM ] in source Unspecifi data ed specimen by Automated count Lymphocyt 10 - 50.0 % Normal No Sep 22 es informati 2016 3:29 [#/volume on in PM ] in source Unspecifi data ed specimen by Automated count Erythrocy 27 - 31.2 pg Normal No Sep 22 te mean informati 2016 3:29 corpuscul on in PM ar source hemoglobi data n [Entitic mass] Erythrocy 31.8 - g/dl Normal No Sep 22 te mean 35.4 informati 2016 3:29 corpuscul on in PM ar source hemoglobi data n concentra tion [Mass/vol ume] by Automated count Erythrocy 82.2 - fl Normal No Sep 22 te mean 97.8 informati 2016 3:29 corpuscul on in PM ar volume source [Entitic data volume] by Automated count Monocytes 0.1 - 1.0 K/mm3 Normal No Sep 22 informati 2016 3:29 [#/volume on in PM ] in source Blood by data Automated count Monocytes 1.7 - 9.3 % Normal No Sep 22 /100 informati 2016 3:29 leukocyte on in PM s in source Blood by data Automated count Platelet 7.4 - fl Low No Sep 22 mean 10.4 informati 2016 3:29 volume on in PM [Entitic source volume] data in Blood by Automated count Platelets 142 - 424 K/mm3 Normal No Sep 22 informati 2016 3:29 [#/volume on in PM ] in source Blood data Erythrocy 4.2 - 5.4 M/mm3 Normal No Sep 22 ruben informati 2016 3:29 [#/volume on in PM ] in source Amniotic data fluid Erythrocy 11.5 - % Normal No Sep 22 te 17.5 informati 2016 3:29 distribut on in PM ion width source [Entitic data volume] by Automated count Leukocyte 4.8 - K/MM3 Normal No Sep 22 s 10.8 informati 2016 3:29 [#/volume on in PM ] in source Blood data Choriogonadotropin.beta subunit [Units] in 24 hour Urine Observa Value Referen Units Interpr Notes Date tion ce etation Range Choriogon NEG No No No Sep 22 adotropin informati informati informati 2016 3:29 .beta on in on in on in PM subunit source source source [Units] data data data in 24 hour Urine Renal function 2000 panel in Serum or Plasma Observa Value Referen Units Interpr Notes Date tion ce etation Range Albumin 3.4 - 5.0 gm/dL Normal No Sep 7 [Mass/vol informati 2017 2:35 ume] in on in PM Serum or source Plasma data Urea 7 - 18 mg/dL Normal No Sep 7 nitrogen informati 2017 2:35 [Mass/vol on in PM ume] in source Serum or data Plasma Calcium 8.5 - mg/dL Normal No Sep 7 [Mass/vol 10.1 informati 2017 2:35 ume] in on in PM Serum or source Plasma data Chloride 98 - 107 mmoL/L Normal No Sep 7 [Moles/vo informati 2017 2:35 lume] in on in PM Serum or source Plasma data Carbon 21.0 - mmoL/L Normal No Sep 7 dioxide, 32.0 informati 2017 2:35 total on in PM [Moles/vo source lume] in data Serum or Plasma Creatinin 0.55 - mg/dL Normal No Sep 7 e 1.02 informati 2017 2:35 [Mass/vol on in PM ume] in source Serum or data Plasma Estimated 59- ML/MIN No REFERENCE Sep 7 informati RANGE: 2017 2:35 glomerula on in >60 PM r source ML/MIN/1. filtratio data 73 SQUARE n rate METERSIf (GF this patient is -A merican, then multiply theresult by 1.210. Glucose 74 - 106 mg/dL High No Sep 7 [Mass/vol informati 2017 2:35 ume] in on in PM Serum or source Plasma data Potassium 3.5 - 5.1 mmoL/L High No Sep 7 informati 2017 2:35 [Moles/vo on in PM lume] in source Serum or data Plasma Sodium 136 - 145 mmoL/L Normal No Sep 7 [Moles/vo informati 2017 2:35 lume] in on in PM Serum or source Plasma data Phosphate 2.4 - 4.9 mg/dL High No Sep 7 informati 2017 2:35 [Moles/vo on in PM lume] in source Unspecifi data ed specimen Creatinine [Mass/volume] in Urine Observa Value Referen Units Interpr Notes Date tion ce etation Range Creatinin 20 - 320 mg/dL Normal No Sep 7 e informati 2017 2:35 [Mass/vol on in PM ume] in source Urine data Protein [Presence] in Urine Observa Value Referen Units Interpr Notes Date tion ce etation Range Protein 161.0 0.0 - mg/dL High No Sep 7 11.9 informa 2017 [Presen tion in 2:35 PM ce] in source Urine data Urinalysis dipstick W Reflex Microscopic panel in Urine Observa Value Referen Units Interpr Notes Date tion ce etation Range Appeara SL CLEAR No No No Sep 7 nce of CLOUDY informa informa informa 2017 Urine tion in tion in tion in 2:35 PM source source source data data data Bacteri 1+ O No No No Sep 7 a informa informa informa 2016 [Presen tion in tion in tion in 2:35 PM ce] in source source source Urine data data data sedimen t by Light microsc opy Bilirub NEGATIV NEG No No No Sep 7 in E informa informa informa 2016 [Presen tion in tion in tion in 2:35 PM ce] in source source source Urine data data data by Test strip Erythro 2+ NEG No Abnorma No Sep 7 cytes informa l informa 2016 [Presen tion in tion in 2:35 PM ce] in source source Urine data data Color YELLOW YELLOW No No No Sep 7 of informa informa informa 2017 Urine tion in tion in tion in 2:35 PM source source source data data data Glucose NEG No High No Sep 7 [Mass/vol informati informati 2017 2:35 ume] in on in on in PM Urine by source source Test data data strip Ketones 1+ NEG mg/dL Abnorma No Sep 7 l informa 2016 [Presen tion in 2:35 PM ce] in source Urine data by Automat ed test strip Mucus NEGATIV NEG No No No Sep 7 [Presen E informa informa informa 2016 ce] in tion in tion in tion in 2:35 PM Urine source source source sedimen data data data t by Light microsc opy Nitrite POSITIV NEG No Abnorma No Sep 7 E informa l informa 2017 [Presen tion in tion in 2:35 PM ce] in source source Urine data data by Test strip pH of 5.0 - 8.5 No Normal No Sep 7 Urine informati informati 2017 2:35 on in on in PM source source data data Protein NEG mg/dL High No Sep 7 [Mass/vol informati 2017 2:35 ume] in on in PM Urine by source Automated data test strip Erythro OCC 0 rbc/hpf No No Sep 7 cytes informa informa 2017 [Presen tion in tion in 2:35 PM ce] in source source Urine data data sedimen t by Light microsc opy Specific 1.005 - No Normal No Sep 7 gravity 1.030 informati informati 2017 2:35 of Urine on in on in PM source source data data Epithel TNTC 0 - 5 #/hpf No No Sep 7 ial informa informa 2017 cells.s tion in tion in 2:35 PM quamous source source data data [Presen ce] in Urine sedimen t by Microsc opy high power field Urobili 0.2 NEG E.U./dL No No Sep 7 nogen informa informa 2017 [Presen tion in tion in 2:35 PM ce] in source source Urine data data by Test strip Leukocy [5 O wbc/hpf No No Sep 7 ruben wbc/hpf informa informa 2017 [#/volu ; 10 tion in tion in 2:35 PM me] in wbc/hpf source source Urine ] data data Urinalysis dipstick W Reflex Microscopic panel in Urine Observa Value Referen Units Interpr Notes Date tion ce etation Range Appeara SL CLEAR No No No Sep 7 nce of CLOUDY informa informa informa 2017 Urine tion in tion in tion in 2:35 PM source source source data data data Bilirub NEGATIV NEG No No No Sep 7 in E informa informa informa 2017 [Presen tion in tion in tion in 2:35 PM ce] in source source source Urine data data data by Test strip Erythro 2+ NEG No Abnorma No Sep 7 cytes informa l informa 2017 [Presen tion in tion in 2:35 PM ce] in source source Urine data data Color YELLOW YELLOW No No No Sep 7 of informa informa informa 2017 Urine tion in tion in tion in 2:35 PM source source source data data data Glucose NEG No High No Sep 7 [Mass/vol informati informati 2017 2:35 ume] in on in on in PM Urine by source source Test data data strip Ketones 1+ NEG mg/dL Abnorma No Sep 7 l informa 2016 [Presen tion in 2:35 PM ce] in source Urine data by Automat ed test strip Mucus NEGATIV NEG No No No Sep 7 [Presen E informa informa informa 2016 ce] in tion in tion in tion in 2:35 PM Urine source source source sedimen data data data t by Light microsc opy Nitrite POSITIV NEG No Abnorma No Sep 7 E informa l informa 2016 [Presen tion in tion in 2:35 PM ce] in source source Urine data data by Test strip pH of 5.0 - 8.5 No Normal No Sep 7 Urine informati informati 2017 2:35 on in on in PM source source data data Protein NEG mg/dL High No Sep 7 [Mass/vol informati 2017 2:35 ume] in on in PM Urine by source Automated data test strip Specific 1.005 - No Normal No Sep 7 gravity 1.030 informati informati 2017 2:35 of Urine on in on in PM source source data data Urobili 0.2 NEG E.U./dL No No Sep 7 nogen informa informa 2016 [Presen tion in tion in 2:35 PM ce] in source source Urine data data by Test strip Opiates and Oxycodone(GC/MS),U Observa Value Referen Units Interpr Notes Date tion ce etation Range Hydroco 661 Cutoff= ng/mL No No Feb 22 done 100 informa informa 2017 GC/MS, tion in tion in 1:13 PM Urine source source data data Oxycodo Negativ Cutoff= No No Test Feb 22 ne/Oxym e 100 informa informa include 2017 orph tion in tion in s 1:13 PM source source Oxycodo data data ne and Oxymorp honePer formed at: - [facility] [id number] [facility], [place], [place] [id number]Lab Directo r: Miguel Gtz MD, Phone: [phone] Codeine Negativ Cutoff= No No No Feb 22 e 100 informa informa informa 2017 tion in tion in tion in 1:13 PM source source source data data data Morphin Negativ Cutoff= No No No Feb 7 e e 100 informa informa informa 2017 tion in tion in tion in 1:13 PM source source source data data data Hydromo Positiv . No Abnorma No Feb 22 rphone e informa l informa 2017 tion in tion in 1:13 PM source source data data Hydromo 482 Cutoff= ng/mL No No Feb 22 rphone 100 informa inform2016 GC/MS, tion in tion in 1:13 PM Urine source source data data Hydroco Positiv . No Abnorma No Feb 22 done e informa l informa 2017 tion in tion in 1:13 PM source source data data Opiates Positiv . No Abnorma Opiate Feb 22 e informa l test 2017 tion in include 1:13 PM source s data Codeine , Morphin e, Hydromo rphone, Hydroco done. Drugs identified in Urine by Screen method Observa Value Referen Units Interpr Notes Date tion ce etation Range Positive urine drug screen samples are stored for 7 days. Contact the Lab if confirmation of positives is needed. Ampheta NEGATIV <1000 ng/mL No No Feb 22 mine E informa informa 2016 [Presen tion in tion in 1:13 PM ce] in source source Urine data data by Screen method Barbitura <200 ng/mL No No Feb 22 ruben informati informati 2017 1:13 [Mass/vol on in on in PM ume] in source source Urine by data data Screen method Benzodiaz 200 ng/mL ng/mL No No Feb 22 epines informati informati 2016 1:13 [Mass/vol on in on in PM ume] in source source Serum or data data Plasma by Screen method Cocaine <300 ng/g No No Feb 22 [Mass/vol informati informati 2017 1:13 ume] in on in on in PM Unspecifi source source ed data data specimen Methadone <300 ng/mL No No Feb 22 informati informati 2017 1:13 [Mass/vol on in on in PM ume] in source source Unspecifi data data ed specimen Opiates <300 ng/mL High This is Feb 22 [Mass/vol an 2017 1:13 ume] in UNCONFIRM PM Unspecifi ED ed result. specimen This result is for medicalpu rposes and/or treatment only. Phencycli <25 ng/mL No No Feb 22 dine informati informati 2017 1:13 [Mass/vol on in on in PM ume] in source source Unspecifi data data ed specimen 11-Hydr POSITIV <50 ng/mL Abnorma This is Feb 22 oxy E l an 2017 delta-9 UNCONFI 1:13 PM RMED tetrahy result. drocann This abinol result [Presen is for ce] in medical Unspeci purpose fied s specime and/or n treatme nt only. HCV RNA by PCR, Qn Rfx Brigida Observa Value Referen Units Interpr Notes Date tion ce etation Range Hepatitis . IU/mL No No December 15 C virus informati informati 2017 3:00 RNA on in on in PM [Units/vo source source lume] data data (viral load) in Serum or Plasma by Probe & target amplifica tion method Hepatitis . No No INFCE December 15 C virus informati informati Result 2017 3:00 RNA [log on in on in Units: PM units/vol source source log10 ume] data data IU/mL (viral load) in Serum or Plasma by Probe & target amplifica tion method Test Comment . No No The December 15 Informa informa informa quantit 2017 tion: tion in tion in ative 3:00 PM source source range data data of this assay is 15 IU/mL to 100mill ion IU/mL. HCV Comment . No No To be December 15 Genotyp informa informa perform 2017 e tion in tion in ed on 3:00 PM source source this data data specime n. Hepatit 1a . No No Perform December 15 is C informa informa ed at: 2017 virus tion in tion in BN - 3:00 PM genotyp source source [facility] e data data [Identi [employer]] [id number] in [place] Serum [facility], or [facility] Plasma [place], [place] by Probe & [id number] target 61Lab Directo amplifi r: cation Vik Guzman MD, Phone: [phone] Please Comment . No No This December 15 note: informa informa test 2017 tion in tion in was 3:00 PM source source develop data data ed and its perform ance charact eristic sdeterm ined by [facility] . It has not been cleared or approve dby the U.S. Food and Drug Adminis tration .The FDA has determi jun that such clearan ce or approva l isnot necessa ry. This test is used for clinica l purpose s. Itshoul d not be regarde d as investi gationa l or for researc h.Perfo rmed at: - [facility] [facility], [place], [place] [address]Lab Directo r: Vik Guzman MD, Phone: [phone] Microalb/Creat Ratio, Randm Ur Observa Value Referen Units Interpr Notes Date tion ce etation Range Microalbu Not ug/mL No Results December 15 min Estab. informati confirmed 2017 3:00 [Mass/vol on in PM ume] in source ondilutio Urine data n. Albumin/C 0.0 - No High INFCE December 15 reatinine 30.0 informati Result 2017 3:00 [Mass on in Units: PM ratio] in source mg/g Urine data creatPerf ormed at: - [facility] [address] [address] [address] [place], [place] [id number] [employer] Operator: Blade Rolle PhD, Phone: [phone] Creatinin Not mg/dL No No December 15 e Estab. informati informati 2017 3:00 [Mass/vol on in on in PM ume] in source source Urine data data Comprehensive metabolic 2000 panel in Serum or Plasma Observa Value Referen Units Interpr Notes Date tion ce etation Range Albumin/G 1.1 - 1.8 No Low No December 15 lobulin informati informati 2017 3:00 [Mass on in on in PM ratio] in source source Serum or data data Plasma Albumin 3.4 - 5.0 gm/dL Low No December 15 [Mass/vol informati 2016 3:00 ume] in on in PM Serum or source Plasma data Alkaline 46 - 116 U/L High No December 15 phosphata informati 2017 3:00 se on in PM [Enzymati source c data activity/ volume] in Serum or Plasma Bilirubin 0.2 - 1.0 mg/dL Normal No December 15 .total informati 2017 3:00 [Mass/vol on in PM ume] in source Serum or data Plasma Urea 7 - 18 mg/dL Normal No December 15 nitrogen informati 2016 3:00 [Mass/vol on in PM ume] in source Serum or data Plasma Calcium 8.5 - mg/dL Normal No December 15 [Mass/vol 10.1 informati 2016 3:00 ume] in on in PM Serum or source Plasma data Chloride 98 - 107 mmoL/L Low No December 15 [Moles/vo informati 2016 3:00 lume] in on in PM Serum or source Plasma data Carbon 21.0 - mmoL/L Normal No December 15 dioxide, 32.0 informati 2016 3:00 total on in PM [Moles/vo source lume] in data Serum or Plasma Creatinin 0.55 - mg/dL Normal No December 15 e 1.02 informati 2016 3:00 [Mass/vol on in PM ume] in source Serum or data Plasma Estimated 59- ML/MIN No REFERENCE December 15 informati RANGE: 2017 3:00 glomerula on in >60 PM r source ML/MIN/1. filtratio data 73 SQUARE n rate METERSIf (GF this patient is -A merican, then multiply theresult by 1.210. Globulin 1.3 - 3.2 gm/dL High No December 15 [Mass/vol informati 2016 3:00 ume] in on in PM Serum source data Glucose 74 - 106 mg/dL High December 15 [Mass/vol 2016 3:00 ume] in CRITICAL PM Serum or RESULTS Plasma RESU LTS CALLED TO: DR. ALBERTO 12/15/16 1819 [place] Potassium 3.5 - 5.1 mmoL/L Normal No December 15 informati 2016 3:00 [Moles/vo on in PM lume] in source Serum or data Plasma Sodium 136 - 145 mmoL/L Low No December 15 [Moles/vo informati 2016 3:00 lume] in on in PM Serum or source Plasma data Aspartate 15 - 37 U/L High No December 15 informati 2016 3:00 aminotran on in PM sferase source [Enzymati data c activity/ volume] in Serum or Plasma Alanine 12 - 78 U/L High No December 15 aminotran informati 2016 3:00 sferase on in PM [Enzymati source c data activity/ volume] in Serum or Plasma Protein 6.4 - 8.2 gm/dL Normal No December 15 [Mass/vol informati 2016 3:00 ume] in on in PM Serum or source Plasma data Thyroxine (T4) free [Mass/volume] in Serum or Plasma Observa Value Referen Units Interpr Notes Date tion ce etation Range Thyroxine 0.76 - ng/dL Normal No December 15 (T4) 1.46 inform2016 3:00 free on in PM [Mass/vol source ume] in data Serum or Plasma Thyrotropin [Units/volume] in Serum or Plasma Observa Value Referen Units Interpr Notes Date tion ce etation Range Thyrotrop 0.358 - uIU/ml No No December 15 in 3.740 informati informati 2016 3:00 [Units/vo on in on in PM lume] in source source Serum or data data Plasma Hemoglobin A1c in Blood Observa Value Referen Units Interpr Notes Date tion ce etation Range Hemoglo 9.5 0.0 - % High < 6% December 15 bin A1c 7.0 NON-CHEIKH 2017 in BETIC 3:00 PM Blood LEVEL< 7% CONTROL LED DIABETI C LEVEL> 8% POORLY CONTROL LED DIABETI C LEVEL CBC W Auto Differential panel in Blood Observa Value Referen Units Interpr Notes Date tion ce etation Range Basophils 0 - 0.2 K/MM3 Normal No December 15 inform2016 3:00 [#/volume on in PM ] in source Blood by data Automated count Basophils 0.1 - 2.0 % Normal No December 15 informati 2016 3:00 leukocyte on in PM s in source Blood by data Automated count Eosinophi 0.0 - 0.4 K/mm3 Normal No December 15 ls informati 2016 3:00 [#/volume on in PM ] in source Blood by data Automated count Eosinophi 0.1 - % Normal No December 15 ls/100 12.0 informati 2016 3:00 leukocyte on in PM s in source Blood by data Automated count Granulocy 1.8 - 7.8 K/mm3 Normal No December 15 ruben informati 2016 3:00 [#/volume on in PM ] in source Blood by data Automated count Granulocy 37.0 - % Normal No December 15 ruben/100 80.0 informati 2016 3:00 leukocyte on in PM s in source Blood by data Automated count Hematocri 37.0 - % Normal No December 15 t [Volume 47.0 informati 2016 3:00 on in PM Fraction] source of Blood data Hemoglobi 12.2 - g/dL Normal No December 15 n 16.2 2016 3:00 [Mass/vol on in PM ume] in source Blood data Lymphocyt 0.7 - 4.5 K/mm3 Normal No December 15 es 2016 3:00 [#/volume on in PM ] in source Unspecifi data ed specimen by Automated count Lymphocyt 10 - 50.0 % Normal No December 15 es informati 2016 3:00 [#/volume on in PM ] in source Unspecifi data ed specimen by Automated count Erythrocy 27 - 31.2 pg Normal No December 15 te mean informati 2016 3:00 corpuscul on in PM ar source hemoglobi data n [Entitic mass] Erythrocy 31.8 - g/dl Normal No December 15 te mean 35.4 2016 3:00 corpuscul on in PM ar source hemoglobi data n concentra tion [Mass/vol ume] by Automated count Erythrocy 82.2 - fl Normal No December 15 te mean 97.8 informati 2016 3:00 corpuscul on in PM ar volume source [Entitic data volume] by Automated count Monocytes 0.1 - 1.0 K/mm3 Normal No December 152016 3:00 [#/volume on in PM ] in source Blood by data Automated count Monocytes 1.7 - 9.3 % Normal No December 15 /100 informati 2016 3:00 leukocyte on in PM s in source Blood by data Automated count Platelet 7.4 - fl Low No December 15 mean 10.4 informati 2016 3:00 volume on in PM [Entitic source volume] data in Blood by Automated count Platelets 142 - 424 K/mm3 Normal No December 15ati 2016 3:00 [#/volume on in PM ] in source Blood data Erythrocy 4.2 - 5.4 M/mm3 Low No December 15 ruben informati 2016 3:00 [#/volume on in PM ] in source Amniotic data fluid Erythrocy 11.5 - % Normal No December 15 te 17.5 informati 2016 3:00 distribut on in PM ion width source [Entitic data volume] by Automated count Leukocyte 4.8 - K/MM3 Normal No December 15 s 10.8 informati 2017 3:00 [#/volume on in PM ] in source Blood data Hep Prf-Ac Observa Value Referen Units Interpr Notes Date tion ce etation Range Hepatit Negativ Negativ No No No Jun 17 is B e e informa informa informa 2016 virus tion in tion in tion in 11:34 surface source source source AM Ag data data data [Presen ce] in Serum by Immunoa ssay Hep B Negativ Negativ No No No Jun 17 Core e e informa informa informa 2016 IgM tion in tion in tion in 11:34 source source source AM data data data Hepatit Negativ Negativ No No No Jun 17 is A e e informa informa informa 2016 virus tion in tion in tion in 11:33 Ab source source source AM [Units/ data data data volume] in Serum by Radioim munoass ay (KASHIF) Hep C Positiv Negativ No Abnorma High Jun 17 Ab e e informa l signal/ 2016 tion in cutoff 11:42 source ratio AM data (>= 5, Archite ct Anti-HC V). [facility] are Laborat ory recomme nds collect ing a new specime n and testing for Hepatit is C RNA Quantit ative PCR to confirm positiv ity and provide a baselin e viral load for monitor ing treatme nt efficac y. Mg Observa Value Referen Units Interpr Notes Date tion ce etation Range Magnesi 1.8 1.6 - mg/dL No No Jun 16 um 2.4 informa informa 2016 [Moles/ tion in tion in 5:31 PM volume] source source in data data Serum or Plasma TSH Observa Value Referen Units Interpr Notes Date tion ce etation Range Thyrotr 2.590 0.270 - mcIU/mL No No Jun 16 opin 4.200 informa informa 2016 [Units/ tion in tion in 5:20 PM volume] source source in data data Serum or Plasma GGT Observa Value Referen Units Interpr Notes Date tion ce etation Range Gamma 363 5 - 36 IU/L High No Jun 16 glutamy informa 2015 l tion in 5:20 PM transfe source rase data [Enzyma tic activit y/volum e] in Serum or Plasma Hemogram Observa Value Referen Units Interpr Notes Date tion ce etation Range LEUKOCY 8.5 4.0 - x10(3)/ No Jun 16 RUBEN 11.0 mcL informa informa 2016 tion in tion in 3:15 PM source source data data Erythro 4.13 3.80 - x10(6)/ No Jun 16 cytes 5.10 mcL informa informa 2015 [#/volu tion in tion in 3:15 PM me] in source source Blood data data by Automat ed count Hemoglo 13.1 12.0 - gm/dL No Jun 16 bin 15.6 informa informa 2016 [Mass/v tion in tion in 3:15 PM olume] source source in data data Blood Hematoc 39.5 35.7 - % No Jun 16 rit 45.9 informa informa 2016 [Volume tion in tion in 3:15 PM source source Fractio data data n] of Blood by Automat ed count Erythro 95.7 82.5 - fL No Jun 16 cyte 99.8 informa informa 2015 mean tion in tion in 3:15 PM corpusc source source ular data data volume [Entiti c volume] by Automat ed count Erythro 31.7 27.0 - pg No Jun 16 cyte 34.3 informa informa 2016 mean tion in tion in 3:15 PM corpusc source source ular data data hemoglo bin [Entiti c mass] by Automat ed count Erythro 33.1 32.1 - gm/dL No Jun 16 cyte 35.3 informa informa 2015 mean tion in tion in 3:15 PM corpusc source source ular data data hemoglo bin concent ration [Mass/v olume] by Automat ed count Erythro 15.1 11.5 - % High No Jun 16 cyte 15.0 informa 2015 distrib tion in 3:15 PM ution source width data [Ratio] by Automat ed count Platele 343 144 - x10(3)/ No Jun 16 ts 423 mcL informa informa 2016 [#/volu tion in tion in 3:15 PM me] in source source Blood data data by Automat ed count MPV 8.2 6.8 - fL No No Jun 16 10.8 informa informa 2016 tion in tion in 3:15 PM source source data data UA Observa Value Referen Units Interpr Notes Date tion ce etation Range Color Yellow No No No No Dec 5 of informa informa informa informa 2013 Urine tion in tion in tion in tion in 10:15 source source source source PM data data data data Appeara Clear Clear No No No Dec 5 nce of informa informa informa 2013 Urine tion in tion in tion in 10:15 source source source PM data data data UA >=1000 Negativ No Abnorma No Dec 5 Glucose mg/dl e informa l informa 2012 tion in tion in 10:15 source source PM data data Ketones >=80 Negativ No Abnorma No Dec 5 mg/dl e informa l informa 2012 [Presen tion in tion in 10:15 ce] in source source PM Urine data data UA Small Negativ No Abnorma No Dec 5 Blood e informa l informa 2013 tion in tion in 10:15 source source PM data data pH of 6.0 5.0 - No No No Dec 5 Urine 8.0 informa informa informa 2013 tion in tion in tion in 10:15 source source source PM data data data Protein 30 Negativ No Abnorma No Dec 5 mg/dl e informa l informa 2012 [Mass/v tion in tion in 10:15 olume] source source PM in data data Urine by Test strip Urobili 0.2 <=1 No No No Dec 5 nogen mg/dl mg/dl informa informa informa 2012 [Presen tion in tion in tion in 10:15 ce] in source source source PM Urine data data data Nitrite Negativ Negativ No No No Dec 5 e e informa informa informa 2012 [Presen tion in tion in tion in 10:15 ce] in source source source PM Urine data data data Leukocy Negativ Negativ No No No Dec 5 te e e informa informa informa 2013 esteras tion in tion in tion in 10:15 e source source source PM [Presen data data data ce] in Urine by Test strip Specifi 1.020 No No No No Jun 22 c informa informa informa informa 2013 gravity tion in tion in tion in tion in 10:15 of source source source source PM Urine data data data data Leukocy 0-3 No /HPF No No Jun 22 ruben informa informa informa 2013 [#/area tion in tion in tion in 10:15 ] in source source source PM Urine data data data sedimen t by Microsc opy high power field UA RBC 0-3 No /HPF No No Jun 22 informa informa informa 2013 tion in tion in tion in 10:15 source source source PM data data data UA 0-3 No /HPF No No Jun 22 Squam informa informa informa 2013 Epi tion in tion in tion in 10:15 source source source PM data data data UA Present No No No No Jun 22 Mucous informa informa informa informa 2013 tion in tion in tion in tion in 10:15 source source source source PM data data data data UA Rare No /HPF Abnorma No Jun 22 Bacteri informa l informa 2013 a tion in tion in 10:15 source source PM data data ABORh Observa Value Referen Units Interpr Notes Date tion ce etation Range ABORh O POS No No No No Jun 22 Int informa informa informa informa 2013 tion in tion in tion in tion in 9:02 PM source source source source data data data data ABSC IgG Observa Value Referen Units Interpr Notes Date tion ce etation Range ABSC Negativ No No No No Jun 22 IgG Int e informa informa informa informa 2012 tion in tion in tion in tion in 9:02 PM source source source source data data data data Auto Diff Observa Value Referen Units Interpr Notes Date tion ce etation Range Neutrop 76.3 No % No No Jun 22 hils informa informa informa 2012 [#/volu tion in tion in tion in 8:16 PM me] in source source source Blood data data data by Automat ed count Lymphoc 17.3 No % No No Jun 22 ytes informa informa informa 2012 [#/volu tion in tion in tion in 8:16 PM me] in source source source Blood data data data by Automat ed count Monocyt 5.2 No % No No Dec 5 es informa informa informa 2012 [#/volu tion in tion in tion in 8:16 PM me] in source source source Blood data data data by Automat ed count Eos 0.8 No % No No Dec 5 Percent informa informa informa 2013 tion in tion in tion in 8:16 PM source source source data data data Baso 0.4 No % No No Dec 5 Percent informa informa informa 2013 tion in tion in tion in 8:16 PM source source source data data data Neutrop 9.5 1.8 - x10(3)/ High No Dec 5 hils 7.7 mcL informa 2012 [#/volu tion in 8:16 PM me] in source Blood data Lymphoc 2.1 0.6 - x10(3)/ No No Dec 5 ytes 4.8 mcL informa informa 2012 [#/volu tion in tion in 8:16 PM me] in source source Blood data data Monocyt 0.6 0.0 - x10(3)/ No No Dec 5 es 1.3 mcL informa informa 2012 [#/volu tion in tion in 8:16 PM me] in source source Blood data data Eosinop 0.1 0.0 - x10(3)/ No No Dec 5 hils 0.5 mcL informa informa 2012 [#/volu tion in tion in 8:16 PM me] in source source Blood data data Basophi 0.0 0.0 - x10(3)/ No No Dec 5 ls 0.2 mcL informa informa 2012 [#/volu tion in tion in 8:16 PM me] in source source Blood data data CBC Observa Value Referen Units Interpr Notes Date tion ce etation Range LEUKOCY 12.4 4.0 - x10(3)/ High No Dec 5 RUBEN 11.0 mcL informa 2012 tion in 8:16 PM source data Erythro 3.55 3.80 - x10(6)/ Low No Dec 5 cytes 5.10 mcL informa 2012 [#/volu tion in 8:16 PM me] in source Blood data by Automat ed count Hemoglo 10.7 12.0 - gm/dL Low No Jun 22 bin 15.6 informa 2012 [Mass/v tion in 8:16 PM olume] source in data Blood Hematoc 31.5 35.7 - % Low No Jun 22 rit 45.9 informa 2012 [Volume tion in 8:16 PM source Fractio data n] of Blood by Automat ed count Erythro 88.8 82.5 - fL No Jun 22 cyte 99.8 informa informa 2013 mean tion in tion in 8:16 PM corpusc source source ular data data volume [Entiti c volume] by Automat ed count Erythro 30.3 27.0 - pg No No Jun 22 cyte 34.3 informa informa 2012 mean tion in tion in 8:16 PM corpusc source source ular data data hemoglo bin [Entiti c mass] by Automat ed count Erythro 34.1 32.1 - gm/dL No No Jun 22 cyte 35.3 informa informa 2012 mean tion in tion in 8:16 PM corpusc source source ular data data hemoglo bin concent ration [Mass/v olume] by Automat ed count Erythro 13.1 11.5 - % No No Jun 22 cyte 15.0 informa informa 2012 distrib tion in tion in 8:16 PM ution source source width data data [Ratio] by Automat ed count Platele 374 144 - x10(3)/ No No Jun 22 ts 423 mcL informa informa 2012 [#/volu tion in tion in 8:16 PM me] in source source Blood data data by Automat ed count Platele 8.5 6.8 - fL No No Jun 22 t mean 10.8 informa informa 2012 volume tion in tion in 8:16 PM [Entiti source source c data data volume] in Blood PT Observa Value Referen Units Interpr Notes Date tion ce etation Range Prothro 10.7 9.7 - second( No No Jun 22 mbin 12.3 s) informa informa 2012 time tion in tion in 9:09 PM (PT) in source source data data Platele t poor plasma by Coagula tion assay INR in 0.97 0.88 - No No Level Jun 22 Platele 1.12 informa informa of 2013 t poor tion in tion in Therapy 9:09 PM plasma source source by data data Indicat Coagula ions tion Target assay INR Range\\. br\\\\.br \\Standa rd Dose Treatme nt and prophyl axis of venous 2.0 - 3.0\\.br \\ thrombo sis, pulmona ry embolis m\\.br\\\\ .br\\ High Dose High risk patient s with mechani lane 2.5 - 3.5\\.br \\ heart valves PTT Observa Value Referen Units Interpr Notes Date tion ce etation Range Activat 32.7 25.5 - second( No Therape Jun 22 ed 36.1 s) informa uti 2013 partial tion in range 9:09 PM source for thrombp data direct lastin thrombi time n (aPTT) inhibit in ors: Blood Argatro by ban is Coagula 1.5 to tion 3 times assay the aPTT baselin e. Lepirud in is 1.5 to 2 times the aPTT baselin e. The aPTT should not exceed 100 seconds .\\.br\\T he dosage of Argatro ban should be decreas ed in patient s with hepatic impairm ent. The dosage of Lepirud in should be decreas ed in renal insuffi ciency. \\.br\\\\. br\\The aPTT is no longer the appropr iate test to monitor unfract ionated heparin anticoa gulatio n. PN NON STRESS TEST Observa Value Referen Units Interpr Notes Date tion ce etation Range Obstetr No No No No Nov 15 ic informa informa informa informa 2013 Ultraso tion in tion in tion in tion in und source source source source Report\\ data data data data .br\\Ant enatal Testing \\.br\\Re ferral from:\\. br\\ANDLisette RAJAN M.D. [facility] are\\.br \\[facility] [address]\\. br\\[address] [place] [address]\\. br\\[facility] [place] [address] [employer] \\.br\\P doris: Reading Room \\.br\\F ax: Fax \\.br\\- ------- ------- ------- ------- ------- ------- ------- ------- ------- ------\\ .br\\PAT IENT INFORMA TION:\\. br\\Name : ADEEL PERDOMO MR#: [id number] 0\\.br\\A ge: 23 y/o G1 Exam Date: 013\\.br \\: 04/05/19 88 Visit #: 2\\.br\\L MP: 09/12/19 13 Locatio n: [facility] \\.br\\ [facility] are-- [place]\\.br\\# Fetuses : 1\\.br\\I NDICATI ON: Non-suf ficient prenata l care Multipl e anomali es,GDM\\ .br\\--- ------- ------- ------- ------- ------- ------- ------- ------- ------- ----\\.b r\\PHYSI LANE EXAM:\\. br\\Malena ht: 5' 1"\\.br\\ Pre-Pre gnancy Weight: 115 lbs.\\.b r\\Pre-P regnanc y BMI: 21.7 (Normal )\\.br\\B lood Pressur e 1: 105/70\\ .br\\MED ICAL HISTORY :\\.br\\D iabetes : Pregest ational (Type 1)\\.br\\ Other/C omments : Medicat ions: PNV, Tylenol , Humilin ,\\.br\\H umalog\\ .br\\--- ------- ------- ------- ------- ------- ------- ------- ------- ------- ----\\.b r\\DATIN G:\\.br\\ Assigne d GA\\.br\\ GA by LMP (prior US) LINN\\.br \\37 4/7 wks 36 0/7 wks 3\\.br\\B EVITA SINGLETON E #1: 105/70 Semi-Fo wlers\\. br\\---- ------- ------- ------- ------- ------- ------- ------- ------- ------- ---\\.br \\NON STRESS TEST:\\. br\\Reac tive Baselin e FHR: 140 bpm, Normal\\ .br\\Tamiko iabilit y: Moderat e\\.br\\P attern: Normal\\ .br\\Fet al Kick-Co unt: Count Reinfor amol\\.br \\Acoust ic Stim: No\\.br\\ Contrac tions: Irregul ar\\.br\\ Status: Reassur ing\\.br \\------ ------- ------- ------- ------- ------- ------- ------- ------- ------- -\\.br\\C OMMENTS :\\.br\\F etal assessm ent begins at 1419 and ends at 1455. The patient \\.br\\de nies having pain. The domesti c violenc e screen is negativ e. The\\.br \\patien t does not have functio nal limitat ions. The patient has no\\.br\\ barrier s to educati on. The patient denies alcohol and illicit drug\\.b r\\use during pregnan cy. Medicat ions are reviewe d with no changes .\\.br\\A udible movemen ts are noted and movemen ts are perceiv ed\\.br\\ by the patient . The patient denies having headach e, visual\\ .br\\dis turbanc es, epigast cali pain, dizzine ss or swellin g. The signs\\. br\\and symptom s of labor, UTI, rupture of membran es and preecla mpsia\\. br\\were reviewe d. The kick count protoco l was reviewe d and the\\.br \\patien t daryli bienvenido underst anding. The patient has twice weekly\\ .br\\fet al testing schedul ed.\\.br \\The amnioti c fluid index was recorde d as 26.3 cm on .\\.b r\\Dr. Fletcher aware of tracing /contra ctions. Dr. Fletcher at bedside \\.br\\-- vaginal exam closed --state s patient may be release d and to keep\\.b r\\next office appoint ment.\\. br\\The antenat al testing was perform ed by Ingrid Tellez RN.\\.br \\Electr onicall y signed by DAVONTE \\.br\\VAISHNAVI GRIFFIN M.D. on at\\.br\\ 3:35 pm\\.br\\ ------- ------- ------- ------- ------\\ .br\\AKHIL FLETCHER M.D.\\.b r\\----- ------- -\\.br\\S onograp her: Ur Malb/Cr Observa Value Referen Units Interpr Notes Date tion ce etation Range Urine 112.3 0.0 - mg/L High No Jun 01 Microal 19.9 informa 2012 b tion in 11:13 source AM data Urine 84.7 No mg/dL No No Jun 01 Creatin informa informa informa 2013 ine tion in tion in tion in 11:40 source source source AM data data data Ur 133 0 - 30 mg/gm High No Jun 01 Microal informa 2012 b/Creat tion in 11:40 source AM data PN US OB DETAIL ANATOMY SINGLE OR FIRST GESTATION Observa Value Referen Units Interpr Notes Date tion ce etation Range Obstetr No No No No May 30 ic informa informa informa informa 2013 Ultraso tion in tion in tion in tion in und source source source source Report\\ data data data data .br\\Det tamela Survey\\ .br\\Ref erral from:\\. br\\KERRY RAJAN M.D. [facility] are\\.br \\[facility] [address]\\. br\\[address] [place] [address]\\. [place]\\[place] [address] Ref[employer] Furnace [employer]er \\.br\\P doris: Reading Room [phone]\\.br\\F ax: [phone] Fax \\.br\\- ------- ------- ------- ------- ------- ------- ------- ------- ------- ------\\ .br\\PAT IENT INFORMA TION:\\. br\\Name : ADEEL PERDOMO MR#: [id number] 0\\.br\\A ge: 23 y/o G1 Exam Date: 013\\.br \\: 04/05/19 [birth year] Visit #: 1\\.br\\L MP: 09/12/19 13 Locatio n: [facility]\\.br\\ [facility] are-- [place]\\.br\\# Fetuses : 1\\.br\\I NDICATI ON: Non-suf ficient prenata l care Multipl e anomali es,GDM\\ .br\\--- ------- ------- ------- ------- ------- ------- ------- ------- ------- ----\\.b r\\PHYSI LANE EXAM:\\. br\\Heig ht: 5' 1"\\.br\\ Pre-Pre gnancy Weight: 115 lbs.\\.b r\\Pre-P regnanc y BMI: 21.7 (Normal )\\.br\\C urrent Weight: 7 lbs.\\.b r\\Pulse : 90\\.br\\ Blood Pressur e 1: 108/76 Semi-Fo wlers\\. br\\Uter ine Tendern ess: No\\.br\\ MEDICAL HISTORY :\\.br\\D iabetes : Pregest ational (Type 1)\\.br\\ Other/C omments : Medicat ions: PNV, Tylenol , Humilin ,\\.br\\H umalog\\ .br\\--- ------- ------- ------- ------- ------- ------- ------- ------- ------- ----\\.b r\\DATIN G:\\.br\\ Assigne d GA\\.br\\ GA by LMP GA by US (prior US) LINN\\.br \\37 1/7 wks 33 5/7 wks 35 4/7 wks /31/07 3\\.br\\B IOMETRY :\\.br\\B PD: 86.9 mm 35 1/7 wks HC: 302.6 mm 33 4/7 wks\\.br \\(40%) (7%)\\.b r\\Femur : 62.1 mm 32 1/7 wks AC: 343.1 mm 38 1/7 wks\\.br \\(8%) (91%)\\. br\\HC/A C: 0.88 (0.93 -1.11)\\ .br\\EFW : 2802 gms 6 lbs 3 oz\\.br\\ (53%)\\. br\\Lat Ventric les: R-4.3 mm FL/AC: 0.18\\.b r\\HL/BP D: 0.64 FL/BPD: 0.71\\.b r\\Humer us: 55.8 mm 32 Radius: 45.5 mm (\\.br\\3 /7 (11%)\\. br\\Ulna : 50.3 mm 31 Tibia: 53.9 mm 3\\.br\\6 /7 (<5%) 6/7 (<5%)\\. br\\Fibu la: 43.7 mm (<5%)\\. br\\PRES ENTATIO N/CORD/ PLACENT A/FLUID /CERVIX :\\.br\\P resenta tion: Cephali c\\.br\\U mbilica l Cord: 3 Vessel Cord.\\. br\\Plac enta: Posteri or, Left. There Is No Evidenc e Of Placent a\\.br\\P revia. Grade 2\\.br\\A mniotic Fluid: Maximum Vertica l Pocket = 9.1 cm. Subject edith AF\\.br\\ Volume: Mildly Increas ed. Assessm ent:\\.b r\\polyh ydramni os. (PHONG=26 .3 cm)\\.br \\ ANATOMI LANE SURVEY: \\.br\\No rmal\\.b r\\----- -\\.br\\C alvariu m Intracr anial Anatomy \\.br\\La teral Ventric les Choroid Plexus\\ .br\\Mid line Falx Cervica l Spine\\. br\\Thor acic Spine Lumbar Spine\\. br\\Four Chamber View RVOT\\.b r\\Aorti c Arch Cardiac Townley\\.b r\\Cardi ac Positio n Heart Rate\\.b r\\Diaph ragm Stomach \\.br\\Ki dney - Left Kidney - Right\\. br\\Blad alison\\.br \\Subopt imal\\.b r\\----- -----\\. br\\Uppe r Extremi ties\\.b r\\Not Visuali zed\\.br \\------ ------- -\\.br\\P rofile LVOT\\.b r\\Three Vessel View Ventral Wall\\.b r\\Abnor mal\\.br \\------ --\\.br\\ Lips (BILATE RAL COMPLET E CLEFT LIP-8.0 MM)\\.br \\Sacrum (SACRAL AGENESI S)\\.br\\ Foot - Left\\.b r\\TOY MECHANIC FINDING S:\\.br\\ Ovaries : Left: Not Seen\\.b r\\Right : Normal\\ .br\\EFW Summary Table\\. br\\Exam Date Fetus # EFW Percent ile\\.br \\------ --- ------- ---- ------- ---\\.br \\ 1 2802 53 %\\.br\\N ON STRESS TEST:\\. br\\Reac tive Baselin e FHR: 135 bpm, Normal\\ .br\\Tamiko iabilit y: Moderat e\\.br\\P attern: Acceler ations\\ .br\\Fet al Kick-Co unt: Count Initiat ed\\.br\\ Acousti c Stim: No\\.br\\ Contrac tions: Irregul ar\\.br\\ Status: Reassur ing\\.br \\AMNIOT IC FLUID VOLUME: \\.br\\PO LYHYDRA MNIOS Total PHONG: 26.3 cm. Subject edith AF Volume: Mildly\\ .br\\Inc reased. >95th percent ile. Maximum Vertica l\\.br\\P ocket: 9.1 cm\\.br\\ ------- ------- ------- ------- ------- ------- ------- ------- ------- ------- \\.br\\CO MMENTS: \\.br\\Vi sualiza tion of anatomy is limited by advance d gestati onal\\.b r\\age, subopti mal positio n.\\.br\\ The biometr ic measure ments are consist ent with the\\.br \\gestat ional age establi shed by a prior ultraso und perform ed\\.br\\ elsewhe re.\\.br \\ assessm ent begins at 1423 and ends at 1445. The patient \\.br\\de nies having pain. The domesti c violenc e screen is negativ e. The\\.br \\patien t does not have functio nal limitat ions. The patient has no\\.br\\ barrier s to educati on. The patient denies alcohol and illicit drug\\.b r\\use during pregnan cy. Medicat ions are reviewe d with no changes .\\.br\\A udible movemen ts are noted and movemen ts are perceiv ed\\.br\\ by the patient . The patient denies having headach e, visual\\ .br\\dis turbanc es, epigast cali pain, dizzine ss or swellin g. The signs\\. br\\and symptom s of labor, UTI, rupture of membran es and preecla mpsia\\. br\\were reviewe d. The kick count protoco l was reviewe d and the\\.br \\patien t verbali zed [facility]. The patient has once weekly\\ .br\\fet al testing schedul ed.\\.br \\The antenat al testing was perform ed by Rahat Samson RN.\\.br \\Dr. Edwards scanned the patient and reviewe d all the finding s with\\.b r\\the patient , her mother and her aunt. The lateral ventric les are\\.br \\normal today. Even though the patient reports kicks I\\.br\\c autione d her that the baby will likely have neurolo gic impairm ent\\.br \\of lower exterme nties due to sacral agenesi s. I reviewe d that her\\.br \\Hgb A1c of 11% contrib uted to this defect. There is bilater al\\.br\\ cleft lip and a known cleft palate. Kick counts were discuss ed. The\\.br \\matern al aunt stated that she will be able now to bring the patient \\.br\\to her appoint ments. (The patient has not been seen for 3 months in\\.br\\ our office. )\\.br\\R ecommen d continu ing antenat al testing and a growth scan in 2\\.br\\w eekrysta.\\. br\\Elec tronica lly signed by ROSA ISELA\\. jens\\ANIL ABREU M.D. on 013 at\\.br\\ 4:36 pm\\.br\\ ------- ------- ------- ------- ------\\ .br\\TEQUILA EDWARDS M.D.\\.b r\\----- ------- ------- ------- ------\\ .br\\Son anisa r: Roxana Unger, RDMS Auto Diff Observa Value Referen Units Interpr Notes Date tion ce etation Range Neutrop 77.3 No % No No Jan 24 hils informa informa informa 2012 [#/volu tion in tion in tion in 12:46 me] in source source source AM Blood data data data by Automat ed count Lymphoc 16.7 No % No No Feb 08 ytes informa informa informa 2012 [#/volu tion in tion in tion in 12:46 me] in source source source AM Blood data data data by Automat ed count Monocyt 4.7 No % No No Feb 08 es informa informa informa 2012 [#/volu tion in tion in tion in 12:46 me] in source source source AM Blood data data data by Automat ed count Eos 1.2 No % No No Jan 24 Percent informa informa informa 2012 tion in tion in tion in 12:46 source source source AM data data data Baso 0.1 No % No No Jan 24 Percent informa informa informa 2012 tion in tion in tion in 12:46 source source source AM data data data Neut# 8.4 1.8 - x10(3)/ High No Jan 24 7.7 mcL informa 2012 tion in 12:46 source AM data Lymph# 1.8 0.6 - x10(3)/ No No Jan 24 4.8 mcL informa informa 2012 tion in tion in 12:46 source source AM data data Mcculloch# 0.5 0.0 - x10(3)/ No No Jan 24 1.3 mcL informa informa 2012 tion in tion in 12:46 source source AM data data Eos# 0.1 0.0 - x10(3)/ No No Jan 24 0.5 mcL informa informa 2012 tion in tion in 12:46 source source AM data data Baso# 0.0 0.0 - x10(3)/ No No Jan 24 0.2 mcL informa informa 2012 tion in tion in 12:46 source source AM data data CBC Observa Value Referen Units Interpr Notes Date tion ce etation Range LEUKOCY 10.9 4.0 - x10(3)/ No No Jan 24 RUBEN 11.0 mcL informa informa 2012 tion in tion in 12:46 source source AM data data Erythro 3.91 3.80 - x10(6)/ No No Feb 08 cytes 5.10 mcL informa informa 2012 [#/volu tion in tion in 12:46 me] in source source AM Blood data data by Automat ed count Hemoglo 12.6 12.0 - gm/dL No Feb 08 bin 15.6 informa informa 2013 [Mass/v tion in tion in 12:46 olume] source source AM in data data Blood Hematoc 36.2 35.7 - % No Feb 08 rit 45.9 informa informa 2012 [Volume tion in tion in 12:46 source source AM Fractio data data n] of Blood by Automat ed count Erythro 92.8 82.5 - fL No Feb 08 cyte 99.8 informa informa 2013 mean tion in tion in 12:46 corpusc source source AM ular data data volume [Entiti c volume] by Automat ed count Erythro 32.1 27.0 - pg No Feb 08 cyte 34.3 informa informa 2012 mean tion in tion in 12:46 corpusc source source AM ular data data hemoglo bin [Entiti c mass] by Automat ed count Erythro 34.6 32.1 - gm/dL No Feb 08 cyte 35.3 informa informa 2013 mean tion in tion in 12:46 corpusc source source AM ular data data hemoglo bin concent ration [Mass/v olume] by Automat ed count Erythro 13.6 11.5 - % No Feb 08 cyte 15.0 informa informa 2012 distrib tion in tion in 12:46 ution source source AM width data data [Ratio] by Automat ed count Platele 260 144 - x10(3)/ No No Feb 08 ts 423 mcL informa informa 2012 [#/volu tion in tion in 12:46 me] in source source AM Blood data data by Automat ed count MPV 8.1 6.8 - fL No No Feb 08 10.8 informa informa 2013 tion in tion in 12:46 source source AM data data MM US BREAST LEFT Observa Value Referen Units Interpr Notes Date tion ce etation Range TEXT MM US No No No No December 16 DIAGNOS BREAST informa informa informa informa 2011 IS LEFTNo tion in tion in tion in tion in 1:11 PM BATTERY lesion source source source source is seen data data data data to corresp ond with the palpabl e abnorma lity in the leftbre ast 1 o'clock positio n.IMPRE SSION: No radiogr aphic evidenc e of maligna ncy(ACR -Catego ry-1)RE COMMEND ATION: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
--- OUTSIDE RECORDS SUMMARY | 2017-06-07 20:14 | External Medical Summary Rpt ---
Demographics Address [address] [place] [address] Home Phone Preferred Language Unknown Marital Status Unknown Anabaptism Affiliation Unknown Race Unknown Ethnic Group Unknown [...] and [employer] honePer formed at: - [facility] [id number] [facility], [place], [place] [id number]Lab Directo r: Miguel Gtz MD, Phone: [phone] Codeine Negativ Cutoff= No No No Feb [...] [facility] e data data [Identi Burling fier] [id number] in [place] Serum [facility], or [facility] Plasma [place], [place] by Probe & [id number] target 61Lab Directo amplifi r: cation Vik Guzman MD, Phone: [phone] Please Comment . No No This December [...] or for researc h.Perfo rmed at: - [facility] [facility], [place], [place] [address]Lab Directo r: Vik Guzman MD, Phone: [phone] Microalb/Creat Ratio, Randm Ur Observa Value Referen [...] Urine data creatPerf ormed at: - [facility] [place] [address] [address] [place], [place] [id number] Director Of Women'S Services: Blade Rolle PhD, Phone: [phone] Creatinin Not mg/dL No No December [...] LTS CALLED TO: DR. ALBERTO 12/15/16 1819 [place] Potassium 3.5 - 5.1 mmoL/L Normal [...] data (>= 5, Archite ct Anti-HC V). [facility] are Laborat ory recomme nds collect [...] Testing \\.br\\Re ferral from:\\. br\\ANDLisette RAJAN M.D. [facility] are\\.br \\[facility] [address]\\. br\\[address] [place] [address]\\. br\\[place] [address] Extrusion Former [phone]\\.br\\P doris: Reading Room [phone]\\.br\\F ax: [phone] Fax \\.br\\- ------- ------- ------- ------- ------- ------- ------- ------- ------- ------\\ .br\\PAT IENT INFORMA TION:\\. br\\Name : ADEEL PERDOMO MR#: [id number] 0\\.br\\A ge: 23 y/o G1 Exam Date: 013\\.br \\: 04/05/19 88 Visit #: 2\\.br\\L MP: 09/12/19 13 Locatio n: [facility] \\.br\\ [facility] are-- [place]\\.br\\# Fetuses : 1\\.br\\I NDICATI [...] Survey\\ .br\\Ref erral from:\\. br\\KERRY RAJAN M.D. [facility] are\\.br \\[facility] [address]\\. br\\[address] [place] [address]\\. br\\[place] [address] Extrusion Former \\.br\\P doris: [phone] Reading Room [phone]\\.br\\F ax: Fax \\.br\\- ------- ------- ------- ------- ------- ------- ------- ------- ------- ------\\ .br\\PAT IENT INFORMA TION:\\. br\\Name : ADEEL PERDOMO MR#: [id number] 0\\.br\\A ge: 23 y/o G1 Exam Date: 013\\.br \\: 04/05/19 88 Visit #: 1\\.br\\L MP: 09/12/19 13 Locatio n: [facility]\\.br\\ [facility] are-- [place]\\.br\\# Fetuses : 1\\.br\\I NDICATI [...] Chamber View RVOT\\.b r\\Aorti c Arch Cardiac Farrell\\.b r\\Cardi ac Positio n Heart Rate\\.b r\\Diaph ragm Stomach \\.br\\Ki dney - Left Kidney - Right\\. br\\Blad alison\\.br \\Subopt imal\\.b r\\----- -----\\. br\\Uppe r Extremi ties\\.b r\\Not Visuali zed\\.br \\------ ------- -\\.br\\P rofile LVOT\\.b r\\Three Vessel View Ventral Wall\\.b r\\Abnor mal\\.br \\------ --\\.br\\ Lips (BILATE RAL COMPLET E CLEFT LIP-8.0 MM)\\.br \\Sacrum (SACRAL AGENESI S)\\.br\\ Foot - Left\\.b r\\GUITAR MAKER HAND FINDING S:\\.br\\ Ovaries : Left: Not Seen\\.b [...] and the\\.br \\patien t verbali zed [facility]. The patient has once weekly\\ .br\\fet al [...] in 12:46 source source AM data data [place]# 0.5 0.0 - x10(3)/ No No Jan [...]
--- NOTE | 2017-06-07 20:19 | Emergency Room Report ---
History of Present Illness Time Seen by 2008 Presenting Problem in Triage Pt arrived:Walked Presenting Problem:VOMITING ALL DAY, REPORTS GLUCOSE OVER 400 ALL DAY. 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 N Clinical Suspician of Infection? N Mental Status: 1 - Regular (Normal Baseline) Sepsis Risk:Low Sepsis Risk Have you (or family members/close friends) recently traveled outside the [place]? N If Yes, where/when: Have you had exposure to infectious disease within the past month? N TB? Other? Specify: Source patient, RN notes reviewed, family, old records Exam Limitations no limitations Comment pt with vomiting and no diarrhea with nausea - she has iddm with reported compliance and no fever or rash Cardiac Chest Pain Chest pain indicative of cardiac No Timing/Duration this evening Severity moderate ALLERGIES Coded Allergies: aspirin (ITCHING 04/12/17) Home Medications Reported Medications Insulin Lispro (Humalog Kwikpen) 0 SQ ACHS #15 ML INSULIN NPL/INSULIN LISPRO (Humalog Mix 75-25 Kwikpen) 0 SC QAM #30 ML Buspirone Hcl (Buspar 10MG) 10 MG PO BID Quetiapine Fumarate 50 MG PO QHS LISINOPRIL (Lisinopril) 2.5 MG PO DAILY #30 TAB INSULIN NPL/INSULIN LISPRO (Humalog Mix 75-25 Kwikpen) 15 SC NIGHT ONLY History Medical History General CAD? No Angina: No DE: No Hypertension? Yes Hyperlipidemia? No CHF? No DVT? No PE? No COPD? No Asthma? No Anemia? No GERD? No Gastric ulcers? No GI Bleed? No Hernia? No Thyroid Problems? No Hypothyroidism? No CVA? No Seizures? No Diabetes? Yes Insulin Dependent: Yes Insulin Pump: No Home FSBS? Yes Renal Insuffiency? No End Stage Renal Disease? No UTI? Yes Stones? Yes BPH? No GB Disease: No Nephritic Syndrome? No Asplenia? No Hepatitis? Yes Sickle Cell Disease? No Arthritis? No Migraines? No Cataracts? No Glaucoma? No MRSA? No HIV? No TB? No Anxiety? No Depression? No Cancer? No More? 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 Respiratory denies cough, denies shortness of breath, denies wheezing Cardiovascular denies chest pain, denies syncope Gastrointestinal see HPI, denies abdominal pain, nausea, denies vomiting Genitourinary denies: dysuria, frequency, hesitancy, hematuria. Musculoskeletal denies back pain, denies joint pain, denies joint swelling, denies neck pain Skin denies rash Psychiatric/Neurological denies headache, denies seizure Physical Exam Vital Signs Vital Signs Date Time Temp Pulse Resp B/P Pulse O2 O2 Flow FiO2 Ox Delivery Rate 06/07 2003 98.7 135 18 158/105 100 - WBC >12,000 or <4,000 or 10% bands? 2 or more SIRS Criteria Met? B/P:151/104 MAP:122 Creatinine >2.0? UA output<0.5ml/kg/hr for 2 hrs? Platelet count >100,000? Lactate >2.0mmol/1? INR >1.2 or PTT > than 60 sec? Evidence of Organ Dysfunction? Provider documented clinical suspician of infection? N Sepsis Criteria Count: 1 Sepsis Risk: Low Sepsis Risk General Appearance no apparent distress Eye Exam - bilateral eye PERRL, bilateral eye EOMI Ear, Nose, Throat normal ENT inspection, no icterus Neck supple Respiratory Status No: respiratory distress. Lung Sounds bilateral: lungs clear. 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 No Results/Orders Laboratory Tests 06/07/172048: VBG pH 7.21 L, VBG Total CO2 Pending, VBG O2 Sat (Calc) Pending, VBG Base Excess Pending, Mixed VBG pCO2 37.0 L, Mixed VBG pO2 Pending, Mixed VBG HCO3 14.6 L 06/07/172024: Sodium 136, Potassium 4.8, Chloride 93 L, Carbon Dioxide 16 L, BUN 16, Creatinine 1.3 H, Estimated Creat Clear 56, Estimated GFR (MDRD) 48 L, Glucose 453 H, Calcium 10.0, Total Bilirubin 0.7, AST 54 H, ALT 59, Alkaline Phosphatase 177 H, Total Protein 7.8, Albumin 3.3 L, Globulin 4.5 H, Albumin/ Globulin Ratio 0.7 L, Amylase 94, Lipase 84, WBC 13.4 H, RBC 4.55, Hgb 13.9, Hct 43.4, MCV 95.5, RDW 13.1, Plt Count 444 H, MPV 7.9, Gran % 79.8, Gran # 10.7 H, Lymphocytes % 15.1, Monocytes % 4.3, Eosinophils % 0.6, Basophils % 0.2 , Lymphocytes # 2.0, Monocytes # 0.6, Eosinophils # 0.1, Basophils # 0.0, PUBS MCHC 31.9, MCH 30.5, Acetone Level SMALL 06/07/172009: Urine Color YELLOW, Urine Appearance SL CLOUDY, Urine pH 6.0, Ur Specific [place] >= 1.030, Urine Protein 2+ H, Urine Ketones 3+ H, Urine Blood 2+ H, Urine Nitrate NEGATIVE, Urine Bilirubin 2+ H, Urine Urobilinogen 0.2, Ur Leukocyte Esterase NEGATIVE, Urine Glucose 2+ H Current Medication Orders Sig/Roberto Start time Last Medication Dose Route Stop Time Status Admin Insulin Human Regular 100 UNITS .Q25H 06/07 2115 AC 06/07 Sodium Chloride 100 ML IV 2133 Insulin Human Regular 5 UNITS ONCE ONE 06/07 2115 DC 06/07 IVP 06/07 Sodium Chloride 100 ML .STK-MED ONE 06/07 2113 DC IV Insulin Human Regular 0 .STK-MED ONE 06/07 2112 DC .ROUTE Ondansetron HCl 4 MG ONCE ONE 06/07 2015 DC 06/07 IV 06/07 Ondansetron HCl 0 .STK-MED ONE 06/07 2015 DC .ROUTE Sodium Chloride 10 ML PRN PRN 06/07 2015 AC IV 06/08 2012 Sodium Chloride 1,000 ML .Q1H1M 06/07 2015 DC 06/07 IV 06/07 Sodium Chloride 10 ML PRN PRN 06/07 2015 AC IV 06/08 2012 Sodium Chloride 1,000 ML .STK-MED ONE 06/07 2015 DC IV Orders Procedure Date/time Status DIET-NOTHING BY MOUTH 06/08 B Active Decision to admit 06/[address] ABD & PELVIS W/O CONTRAST 06/07 2112 Active ARTERIAL BLOOD GAS REQUEST 06/07 2020 Active Acetone, Serum 06/[address] ABD/PELVIS REQ 06/07 2014 Complete IV SALINE LOCK 06/07 2013 Active URINALYSIS/COMPLETE 06/07 2013 Complete URINE 06/07 2013 Complete LIPASE 06/07 2013 Complete CBC WITH AUTO DIFF 06/07 2013 Complete CHEM 12 PROFILE 06/07 2013 Complete AMYLASE 06/07 2013 Complete XRAY/CT/US XRAY/CT/US CT abdomen, pelvis CT interpretation by discussed w/radiologist Time results known: 2146 CT Results abnormal (nonspecific) Departure Departure Time of Disposition 2147 Disposition Still a Patient Clinical Impression Primary Impression: DKA (diabetic ketoacidoses) Qualifiers: Diabetes mellitus type: type 1 Diabetes mellitus complication detail: without coma Qualified Code: E10.10 - Type 1 diabetes mellitus with ketoacidosis without coma Condition STABLE Referrals Miguel Gomez MD (Family) ED Critical Care Critical Care No at 7022
[2017-06-07 20:33] LABS: HEMOGLOBIN 13.9 g/dL (12.2-16.2); LYMPH % 15.1 % (10-50.0)
[2017-06-07 21:14] LABS: URINE BLOOD 2+ (NEG)
[2017-06-07 21:21] LABS: URINE BILIRUBIN - DIPSTICK 2+ (NEG)
--- OUTSIDE RECORDS SUMMARY | 2017-06-07 21:26 | External Medical Summary Rpt | CCD ---
Demographics Preferred Language Irish Marital Status Unknown Religion Affiliation Unknown Race Unknown Ethnic Group Unknown Author Author , LARA BERMUDEZ Address Unknown Phone Immunization No patient found.
--- OUTSIDE RECORDS SUMMARY | 2017-06-07 21:26 | External Medical Summary Rpt | CCD ---
Demographics Preferred Language Turkmen Marital Status Unknown Shinto Affiliation Unknown Race Unknown Ethnic Group Unknown Author Author , LARA BERMUDEZ Address Unknown Phone Immunization No patient found.
--- OUTSIDE RECORDS SUMMARY | 2017-06-07 21:26 | External Medical Summary Rpt | CCD ---
Demographics Address [address] [place] [address] Home Phone Preferred Language [place] Citizen Marital Status Unknown Episcopalian Affiliation Unknown Race Unknown Ethnic Group Unknown Author Author , LARA Organization [facility] Address Unknown Phone [email or web address] Purpose Continuity of Care Document - 12-17-2011 [...]
--- OUTSIDE RECORDS SUMMARY | 2017-06-07 21:26 | External Medical Summary Rpt | CCD ---
Demographics Address [address] [place] [address] Home Phone Preferred Language Cymro Marital Status Unknown Samaritan Affiliation Unknown Race Unknown Ethnic Group Unknown Author Author , LARA Organization [facility] Address Unknown Phone [email or web address] Purpose Continuity of Care Document - 12-17-2011 [...]
--- OUTSIDE RECORDS SUMMARY | 2017-06-07 21:28 | External Medical Summary Rpt ---
Demographics Address [address] [place] [address] Home Phone Preferred Language Unknown Marital Status Unknown Worship Affiliation Unknown Race Unknown Ethnic Group Unknown Author Author LARA [employer], [employer] Organization [employer] Address Unknown Phone Unavailable Results Amylase [Enzymatic activity/volume] in Serum or Plasma Observa Value Referen Units Interpr Notes Date tion ce etation Range Amylase 25 - 115 U/L Normal No Jun 07 [Enzymati informati 2017 8:25 c on in PM activity/ source volume] data in Serum or Plasma Comprehensive metabolic 2000 panel in Serum or Plasma Observa Value Referen Units Interpr Notes Date tion ce etation Range Albumin/G 1.1 - 1.8 No Low No Jun 07 lobulin informati informati 2017 8:25 [Mass on in on in PM ratio] in source source Serum or data data Plasma Albumin 3.4 - 5.0 gm/dL Low No Jun 07 [Mass/vol informati 2017 8:25 ume] in on in PM Serum or source Plasma data Alkaline 46 - 116 U/L High No Jun 07 phosphata informati 2017 8:25 se on in PM [Enzymati source c data activity/ volume] in Serum or Plasma Bilirubin 0.2 - 1.0 mg/dL Normal No Jun 07 .total informati 2016 8:25 [Mass/vol on in PM ume] in source Serum or data Plasma Urea 7 - 18 mg/dL Normal No Jun 07 nitrogen informati 2016 8:25 [Mass/vol on in PM ume] in source Serum or data Plasma Calcium 8.5 - mg/dL Normal No Jun 07 [Mass/vol 10.1 informati 2017 8:25 ume] in on in PM Serum or source Plasma data Chloride 98 - 107 mmoL/L Low No Jun 07 [Moles/vo informati 2017 8:25 lume] in on in PM Serum or source Plasma data Carbon 21.0 - mmoL/L Low No Jun 07 dioxide, 32.0 informati 2017 8:25 total on in PM [Moles/vo source lume] in data Serum or Plasma Creatinin 0.55 - mg/dL High No Jun 07 e 1.02 informati 2017 8:25 [Mass/vol on in PM ume] in source Serum or data Plasma Creatinin 50 - 200 ML/MIN Normal No Jun 07 e renal informati 2016 8:25 clearance on in PM source predicted data by Cockcroft -Gault formula Estimated 59- ML/MIN Low REFERENCE Jun 07 RANGE: 2016 8:25 glomerula >60 PM r ML/MIN/1. filtratio 73 SQUARE n rate METERSIf (GF this patient is -A merican, then multiply theresult by 1.210. Globulin 1.3 - 3.2 gm/dL High No Jun 07 [Mass/vol informati 2016 8:25 ume] in on in PM Serum source data Glucose 74 - 106 mg/dL High Jun 07 [Mass/vol 2016 8:25 ume] in CRITICAL PM Serum or RESULTS Plasma RESU LTS CALLED TO: SARAH 06/07/172051 Maureen Vora nda Potassium 3.5 - 5.1 mmoL/L Normal No Jun 07 informati 2016 8:25 [Moles/vo on in PM lume] in source Serum or data Plasma Sodium 136 - 145 mmoL/L Normal No Jun 07 [Moles/vo informati 2016 8:25 lume] in on in PM Serum or source Plasma data Aspartate 15 - 37 U/L High No Jun 07 informati 2016 8:25 aminotran on in PM sferase source [Enzymati data c activity/ volume] in Serum or Plasma Alanine 12 - 78 U/L Normal No Jun 07 aminotran informati 2016 8:25 sferase on in PM [Enzymati source c data activity/ volume] in Serum or Plasma Protein 6.4 - 8.2 gm/dL Normal No Jun 07 [Mass/vol informati 2016 8:25 ume] in on in PM Serum or source Plasma data Lipase [Enzymatic activity/volume] in Serum or Plasma Observa Value Referen Units Interpr Notes Date tion ce etation Range Lipase 73 - 393 U/L Normal No Jun 07 [Enzymati informati 2016 8:25 c on in PM activity/ source volume] data in Serum or Plasma Acetone [Mass/volume] in Serum or Plasma Observa Value Referen Units Interpr Notes Date tion ce etation Range Acetone NOT No No No Jun 07 [Mass/vol DETECTD informati informati informati 2016 8:25 ume] in on in on in on in PM Serum or source source source Plasma data data data CBC W Auto Differential panel in Blood Observa Value Referen Units Interpr Notes Date tion ce etation Range Basophils 0 - 0.2 K/MM3 Normal No Jun 07 inform2016 8:25 [#/volume on in PM ] in source Blood by data Automated count Basophils 0.1 - 2.0 % Normal No Jun 07 /100 informati 2016 8:25 leukocyte on in PM s in source Blood by data Automated count Eosinophi 0.0 - 0.4 K/mm3 Normal No Jun 07 ls informati 2016 8:25 [#/volume on in PM ] in source Blood by data Automated count Eosinophi 0.1 - % Normal No Jun 07 ls/100 12.0 informati 2016 8:25 leukocyte on in PM s in source Blood by data Automated count Granulocy 1.8 - 7.8 K/mm3 High No Jun 07 ruben informati 2016 8:25 [#/volume on in PM ] in source Blood by data Automated count Granulocy 37.0 - % Normal No Jun 07 ruben/100 80.0 informati 2016 8:25 leukocyte on in PM s in source Blood by data Automated count Hematocri 37.0 - % Normal No Jun 07 t [Volume 47.0 informati 2016 8:25 on in PM Fraction] source of Blood data Hemoglobi 12.2 - g/dL Normal Jun 07 n 16.2 informati 2016 8:25 [Mass/vol on in PM ume] in source Blood data Lymphocyt 0.7 - 4.5 K/mm3 Normal No Jun 07 es informati 2016 8:25 [#/volume on in PM ] in source Unspecifi data ed specimen by Automated count Lymphocyt 10 - 50.0 % Normal No Jun 07 es informati 2016 8:25 [#/volume on in PM ] in source Unspecifi data ed specimen by Automated count Erythrocy 27 - 31.2 pg Normal No Jun 07 te mean informati 2016 8:25 corpuscul on in PM ar source hemoglobi data n [Entitic mass] Erythrocy 31.8 - g/dl Normal No Jun 07 te mean 35.4 informati 2016 8:25 corpuscul on in PM ar source hemoglobi data n concentra tion [Mass/vol ume] by Automated count Erythrocy 82.2 - fl Normal No Jun 07 te mean 97.8 informati 2016 8:25 corpuscul on in PM ar volume source [Entitic data volume] by Automated count Monocytes 0.1 - 1.0 K/mm3 Normal No Jun 07 informati 2016 8:25 [#/volume on in PM ] in source Blood by data Automated count Monocytes 1.7 - 9.3 % Normal No Jun 07 /100 informati 2017 8:25 leukocyte on in PM s in source Blood by data Automated count Platelet 7.4 - fl Normal No Jun 07 mean 10.4 informati 2017 8:25 volume on in PM [Entitic source volume] data in Blood by Automated count Platelets 142 - 424 K/mm3 High No Jun 07 informati 2016 8:25 [#/volume on in PM ] in source Blood data Erythrocy 4.2 - 5.4 M/mm3 Normal No Jun 07 ruben informati 2016 8:25 [#/volume on in PM ] in source Amniotic data fluid Erythrocy 11.5 - % Normal No Jun 07 te 17.5 informati 2016 8:25 distribut on in PM ion width source [Entitic data volume] by Automated count Leukocyte 4.8 - K/MM3 High No Jun 07 s 10.8 informati 2016 8:25 [#/volume on in PM ] in source Blood data Glucose [Mass/volume] in Capillary blood by Glucometer Observa Value Referen Units Interpr Notes Date ti ce etation Range Glucose 70 - 110 mg/dl High No Apr 12 [Mass/vol informati 2017 ume] in on in 11:01 AM Capillary source blood by data Glucomete r Glucose [Mass/volume] in Capillary blood by Glucometer Observa Value Referen Units Interpr Notes Date ti ce etation Range Glucose 70 - 110 mg/dl High No Apr 12 [Mass/vol informati 2016 9:42 ume] in on in AM Capillary source blood by data Glucomete r Glucose [Mass/volume] in Capillary blood by Glucometer Observa Value Referen Units Interpr Notes Date ti ce etation Range Glucose 70 - 110 mg/dl High No Apr 12 [Mass/vol alert informati 2016 8:10 ume] in on in AM Capillary source blood by data Glucomete r Basic metabolic panel in Blood Observa Value Referen Units Interpr Notes Date tion ce etation Range Urea 7 - 18 mg/dL Normal No Sep 22 nitrogen informati 2016 3:29 [Mass/vol on in PM ume] in source Serum or data Plasma Calcium 8.5 - mg/dL Normal No Sep 22 [Mass/vol 10.1 informati 2016 3:29 ume] in on in PM Serum or source Plasma data Chloride 98 - 107 mmoL/L Normal No Sep 22 [Moles/vo informati 2017 3:29 lume] in on in PM Serum or source Plasma data Carbon 21.0 - mmoL/L Normal No Sep 22 dioxide, 32.0 informati 2016 3:29 total on in PM [Moles/vo source lume] in data Serum or Plasma Creatinin 0.55 - mg/dL Normal No Sep 22 e 1.02 informati 2016 3:29 [Mass/vol on in PM ume] in source Serum or data Plasma Estimated 59- ML/MIN No REFERENCE Sep 22 informati RANGE: 2017 3:29 glomerula on in >60 PM r source ML/MIN/1. filtratio data 73 SQUARE n rate METERSIf (GF this patient is -A merican, then multiply theresult by 1.210. Glucose 74 - 106 mg/dL High No Sep 22 [Mass/vol informati 2016 3:29 ume] in on in PM Serum or source Plasma data Potassium 3.5 - 5.1 mmoL/L Normal No Sep 22 informati 2016 3:29 [Moles/vo on in PM lume] in source Serum or data Plasma Sodium 136 - 145 mmoL/L Normal No Sep 22 [Moles/vo informati 2017 3:29 lume] in on in PM Serum or source Plasma data CBC W Auto Differential panel in Blood Observa Value Referen Units Interpr Notes Date tion ce etation Range Basophils 0 - 0.2 K/MM3 Normal No Sep 22 informati 2016 3:29 [#/volume on in PM ] in source Blood by data Automated count Basophils 0.1 - 2.0 % Normal No Sep 22 /100 informati 2016 3:29 leukocyte on in PM s in source Blood by data Automated count Eosinophi 0.0 - 0.4 K/mm3 Normal No Sep 22 ls informati 2016 3:29 [#/volume on in PM ] in source Blood by data Automated count Eosinophi 0.1 - % Normal No Sep 22 ls/100 12.0 informati 2016 3:29 leukocyte on in PM s in source Blood by data Automated count Granulocy 1.8 - 7.8 K/mm3 Normal No Sep 22 ruben informati 2016 3:29 [#/volume on in PM ] in source Blood by data Automated count Granulocy 37.0 - % Normal No Sep 22 ruben/100 80.0 informati 2016 3:29 leukocyte on in PM s in source Blood by data Automated count Hematocri 37.0 - % Normal No Sep 22 t [Volume 47.0 informati 2016 3:29 on in PM Fraction] source of Blood data Hemoglobi 12.2 - g/dL Normal No Sep 22 n 16.2 informati 2017 3:29 [Mass/vol on in PM ume] in source Blood data Lymphocyt 0.7 - 4.5 K/mm3 Normal No Sep 22 es informati 2017 3:29 [#/volume on in PM ] in source Unspecifi data ed specimen by Automated count Lymphocyt 10 - 50.0 % Normal No Sep 22 es informati 2016 3:29 [#/volume on in PM ] in source Unspecifi data ed specimen by Automated count Erythrocy 27 - 31.2 pg Normal No Sep 22 te mean informati 2017 3:29 corpuscul on in PM ar source [...] 424 K/mm3 Normal No Sep 22 informati 2017 3:29 [#/volume on in PM ] in source Blood data Erythrocy 4.2 - 5.4 M/mm3 Normal No Sep 22 ruben informati 2017 [...] mg/dL Abnorma No Sep 7 l informa 2017 [Presen tion in 2:35 PM [...] No No Sep 7 cytes informa informa 2016 [Presen tion in tion [...] No Sep 7 ruben wbc/hpf informa informa 2016 [#/volu ; 10 tion in tion in [...] Observa Value Referen Units Interpr Notes Date ti ce etation Range Hydroco 661 Cutoff= ng/mL No No Feb 22 done 100 informa informa 2016 GC/MS, tion in ti in 1:13 PM Urine source source data data Oxycodo Negativ Cutoff= No No Test Feb 22 ne/Oxym e 100 informa informa include 2017 orph tion in tion in s 1:13 PM source source Oxycodo data data ne and Oxymorp honePer formed at: UI - [facility] [id number] [facility], [place], [place] [id number]Lab Directo r: Miguel Gtz MD, Phone: [phone] Codeine Negativ Cutoff= No No No Feb 22 e 100 informa informa informa 2017 tion in tion in tion in 1:13 PM source source source data data data Morphin Negativ Cutoff= No No No Feb 22 e e 100 informa informa informa 2017 tion in ti in tion in 1:13 PM source source source data data data Hydromo Positiv . No Abnorma No Feb 22 rphone e informa l informa 2017 tion in tion in 1:13 PM source source data data Hydromo 482 Cutoff= ng/mL No No Feb 22 rphone 100 informa informa 2017 GC/MS, tion in [...] Observa Value Referen Units Interpr Notes Date ti ce etation Range Positive urine drug screen samples are stored for 7 days. Contact the Lab if confirmation of positives is needed. Ampheta NEGATIV <1000 ng/mL No No Feb 22 mine E informa informa 2017 [Presen tion in tion in 1:13 PM [...] No No Feb 22 [Mass/vol informati informati 2016 1:13 ume] in on in on in PM Unspecifi source source ed data data specimen Methadone <300 ng/mL No No Feb 22 informati informati 2016 1:13 [Mass/vol on in on in PM ume] in source source Unspecifi data data ed specimen Opiates <300 ng/mL High This is Feb 22 [Mass/vol an 2017 1:13 ume] in UNCONFIRM PM Unspecifi ED ed result. specimen This result is for medicalpu rposes and/or treatment only. Phencycli <25 ng/mL No No Feb 22 dine informati informati 2016 1:13 [Mass/vol on in [...] [facility] e data data [Identi [place] fier] [id number] in [facility], [place], [place] by Probe & [id number] target 61Lab Directo amplifi r: cation Vik Guzman MD, Phone: [phone] Please Comment . No No This December [...] or for researc h.Perfo rmed at: - [facility] [id number] [facility], [place], [place] [id number]Lab Directo r: Vik Guzman MD, Phone: [phone] Microalb/Creat Ratio, Randm Ur Observa Value Referen Units Interpr Notes Date tion ce etation Range Microalbu Not ug/mL No Results December 15 min Estab. informati confirmed 2016 3:00 [Mass/vol on in PM ume] in source ondilutio Urine data n. Albumin/C 0.0 - No High INFCE December 15 reatinine 30.0 informati Result 2017 3:00 [Mass on in Units: PM ratio] in source mg/g Urine data creatPerf ormed at: - [facility] [address] [id number] Billiard Player: Blade Rolle PhD, Phone: [phone] Creatinin Not mg/dL No No December 15 e Estab. informati informati 2016 3:00 [Mass/vol on in on in PM ume] in source source Urine data data Comprehensive metabolic 2000 panel in Serum or Plasma Observa Value Referen Units Interpr Notes Date tion ce etation Range Albumin/G 1.1 - 1.8 No Low No December 15 lobulin informati informati 2016 3:00 [Mass on in on in PM ratio] in source source Serum or data data Plasma Albumin 3.4 - 5.0 gm/dL Low No December 15 [Mass/vol informati 2016 3:00 ume] in on in PM Serum or source Plasma data Alkaline 46 - 116 U/L High No December 15 phosphata informati 2016 3:00 se on in PM [Enzymati source c data activity/ volume] in Serum or Plasma Bilirubin 0.2 - 1.0 mg/dL Normal No December 15 .total informati 2016 3:00 [Mass/vol on in PM [...] LTS CALLED TO: DR. ALBERTO 12/15/16 1819 [place] nda Potassium 3.5 - 5.1 mmoL/L Normal [...] Plasma Observa Value Referen Units Interpr Notes ti etation Range Thyroxine 0.76 - ng/dL Normal No December 15 (T4) 1.46 informati 2016 3:00 free on in PM [Mass/vol source ume] in data Serum or Plasma Thyrotropin [Units/volume] in Serum or Plasma Observa Value Referen Units Interpr Notes ti ce etation Range Thyrotrop 0.358 - uIU/ml No No December 15 in 3.740 informati informati 2016 3:00 [Units/vo on in on in PM lume] in source source Serum or data data Plasma Hemoglobin A1c in Blood Observa Value Referen Units Interpr Notes ti ce etation Range Hemoglo 9.5 0.0 - % High < 6% December 15 bin A1c 7.0 NON-CHEIKH 2017 in BETIC 3:00 PM Blood LEVEL< 7% CONTROL LED DIABETI C LEVEL> 8% POORLY CONTROL LED DIABETI C LEVEL CBC W Auto Differential panel in Blood Observa Value Referen Units Interpr Notes Date ti ce etation Range Basophils 0 - 0.2 K/MM3 Normal No December 15 inform2016 3:00 [#/volume on in PM ] in source Blood by data Automated count Basophils 0.1 - 2.0 % Normal No December 15 /100 informati [...] g/dL Normal No December 15 n 16.2 informati 2016 3:00 [Mass/vol on in PM ume] in source Blood data Lymphocyt 0.7 - 4.5 K/mm3 Normal No December 15 es informati 2016 [...] Normal No December 15 te mean 35.4 informati 2016 3:00 corpuscul on in PM [...] 9.3 % Normal No December 15 /100 inform2016 3:00 leukocyte on in PM s in source Blood by data Automated count Platelet 7.4 - fl Low No December 15 mean 10.4 2016 3:00 volume on in PM [Entitic source volume] data in Blood by Automated count Platelets 142 - 424 K/mm3 Normal No December 152016 3:00 [#/volume on in PM ] in source Blood data Erythrocy 4.2 - 5.4 M/mm3 Low No December 15 ruben 2016 3:00 [#/volume on in PM ] in source Amniotic data fluid Erythrocy 11.5 - % Normal No December 15 te 17.5 2016 3:00 distribut on in PM ion width source [Entitic data volume] by Automated count Leukocyte 4.8 - K/MM3 Normal No December 15 s 10.8 2016 3:00 [#/volume on in PM ] [...] Jun 17 Ab e e informa l / 2015 tion in cutoff 11:42 source ratio AM data (>= 5, Archite ct Anti-HC V). [facility] are Laborat ory recomme nds collect ing a new specime n and testing for Hepatit is C RNA Quantit ative PCR to confirm positiv ity and provide a baselin e viral load for monitor ing treatme nt efficac y. Mg Observa Value Referen Units Interpr Notes Date tion ce etation Range Magnesi 1.8 1.6 - mg/dL No Jun 16 um 2.4 informa informa 2016 [Moles/ tion in tion in 5:31 PM volume] source source in data data Serum or Plasma TSH Observa Value Referen Units Interpr Notes Date tion ce etation Range Thyrotr 2.590 0.270 - mcIU/mL No Jun 16 opin 4.200 informa informa 2016 [Units/ tion in tion in 5:20 PM volume] source source in data data Serum or Plasma GGT Observa Value Referen Units Interpr Notes Date tion ce etation Range Gamma 363 5 - 36 IU/L High No Jun 16 glutamy informa 2016 l tion in 5:20 PM transfe source [...] Jun 16 cytes 5.10 mcL informa informa 2016 [#/volu tion in [...] No Jun 16 cyte 99.8 informa informa 2016 mean tion in tion [...] No Jun 16 cyte 35.3 informa informa 2016 mean tion in tion in 3:15 PM corpusc source source ular data data hemoglo bin concent ration [Mass/v olume] by Automat ed count Erythro 15.1 11.5 - % High No Jun 16 cyte 15.0 informa 2016 distrib tion in 3:15 PM ution source width data [Ratio] by Automat ed count Platele 343 144 - x10(3)/ No No Jun 16 ts 423 mcL informa informa 2016 [#/volu tion in tion in 3:15 PM me] in source source Blood data data by Automat ed count MPV 8.2 6.8 - fL No Jun 16 10.8 informa informa 2016 [...] Dec 5 Blood e informa l informa 2012 tion in tion in 10:15 source source PM data data pH of 6.0 5.0 - No No No Dec 5 Urine 8.0 informa informa informa 2013 tion in tion in tion in 10:15 source source source PM data data data Protein 30 Negativ No Abnorma No Dec 5 mg/dl e informa l informa 2013 [Mass/v tion in tion in 10:15 olume] source source PM in data data Urine by Test strip Urobili 0.2 <=1 No No No Dec 5 nogen mg/dl mg/dl informa informa informa 2012 [Presen tion in tion in tion in 10:15 ce] in source source source PM Urine data data data Nitrite Negativ Negativ No No No Jun 22 e e informa informa informa 2012 [Presen tion in tion in tion in 10:15 ce] in source source source PM Urine data data data Leukocy Negativ Negativ No No No Jun 22 te e e informa informa informa 2013 [...] data Leukocy 0-3 No /HPF No No Dec ruben informa informa informa 2013 [#/area tion in tion in tion in 10:15 ] in source source source PM Urine data data data sedimen t by Microsc opy high power field UA RBC 0-3 No /HPF No No Dec informa informa informa 2013 tion in tion in tion in 10:15 source source source PM data data data UA 0-3 No /HPF No No Dec Squam informa informa informa 2013 Epi tion in tion in tion in 10:15 source source source PM data data data UA Present No No No No Jun 22 Mucous informa informa informa informa 2013 tion in tion in tion in tion in 10:15 source source source source PM data data data data UA Rare No /HPF Abnorma No Dec Bacteri informa l informa 2013 a tion in tion in 10:15 source source PM data data ABORh Observa Value Referen Units Interpr Notes Date tion ce etation Range ABORh O POS No No No No Dec Int informa informa informa informa 2012 tion in tion in tion in tion in 9:02 PM source source source source data data data data ABSC IgG Observa Value Referen Units Interpr Notes Date tion ce etation Range ABSC Negativ No No No No Jun 5 IgG Int e informa informa informa informa 2013 tion in tion in tion in tion in 9:02 PM source source source source data data data data Auto Diff Observa Value Referen Units Interpr Notes Date tion ce etation Range Neutrop 76.3 No % No No Jun 5 hils informa informa informa 2012 [#/volu tion [...] count Monocyt 5.2 No % No No Jun 22 es informa informa informa 2012 [#/volu tion in tion in tion in 8:16 PM me] in source source source Blood data data data by Automat ed count Eos 0.8 No % No No Jun 5 Percent informa informa informa 2012 tion in tion in tion in 8:16 PM source source source data data data Baso 0.4 No % No No Jun 5 Percent informa informa informa 2013 tion in tion in tion in 8:16 PM source source source data data data Neutrop 9.5 1.8 - x10(3)/ High No Jun 22 hils 7.7 mcL informa 2012 [#/volu tion in 8:16 PM me] in source Blood data Lymphoc 2.1 0.6 - x10(3)/ No No Jun 22 ytes 4.8 mcL informa informa 2012 [#/volu tion in tion in 8:16 PM me] in source source Blood data data Monocyt 0.6 0.0 - x10(3)/ No No Jun 22 es 1.3 mcL informa informa 2012 [#/volu [...] No Dec 5 RUBEN 11.0 mcL informa 2013 tion in 8:16 PM source data Erythro 3.55 3.80 - x10(6)/ Low No Dec 5 cytes 5.10 mcL informa 2012 [#/volu tion in 8:16 PM me] in source Blood data by Automat ed count Hemoglo 10.7 12.0 - gm/dL Low No Dec 5 bin 15.6 informa 2012 [Mass/v tion in 8:16 PM olume] source in data Blood Hematoc 31.5 35.7 - % Low No Dec 5 rit 45.9 informa 2012 [Volume tion in 8:16 PM source Fractio data n] of Blood by Automat ed count Erythro 88.8 82.5 - fL No No Dec 5 cyte 99.8 informa informa 2013 mean tion in tion in 8:16 PM corpusc source source ular data data volume [Entiti c volume] by Automat ed count Erythro 30.3 27.0 - pg No No Dec 5 cyte 34.3 informa informa 2012 mean tion in tion in 8:16 PM corpusc source source ular data data hemoglo bin [Entiti c mass] by Automat ed count Erythro 34.1 32.1 - gm/dL No No Dec 5 cyte 35.3 informa informa 2013 mean tion in tion in 8:16 PM corpusc source source ular data data hemoglo bin concent ration [Mass/v olume] by Automat ed count Erythro 13.1 11.5 - % No No Dec 5 cyte 15.0 informa informa 2012 distrib tion [...] Jun 22 Platele 1.12 informa informa of 2012 t poor tion in tion in Therapy [...] Jun 22 ed 36.1 s) informa uti 2012 partial tion in range 9:09 PM source [...] data .br\\Ant enatal Testing \\.br\\Re ferral from:\\. br\\KERRY RAJAN M.D. [facility] are\\.br \\[facility]- ate Materna l Medicin e [address]\\. br\\[address] [facility] [place] [address]\\. [place]\\[place] [address] Switch Crew Supervisor \\.br\\P doris: Reading Room \\.br\\F ax: [phone] Fax \\.br\\- ------- ------- ------- ------- ------- ------- ------- ------- ------- ------\\ .br\\PAT IENT INFORMA TION:\\. br\\Name : ADEEL PERDOMO MR#: [id number] 0\\.br\\A ge: 23 y/o G1 Exam Date: 013\\.br \\: 04/05/19 88 Visit #: 2\\.br\\L MP: 09/12/19 13 Locatio n: [facility]\\.br\\ [facility] are-- [place]\\.br\\# Fetuses : 1\\.br\\I NDICATI ON: Non-suf ficient [...] LINN\\.br \\37 4/7 wks 36 0/7 wks 06/30/ 3\\.br\\B ANNE MARIEOD PRESSUR E #1: 105/70 Semi-Fo wlers\\. br\\---- ------- ------- ------- ------- ------- ------- ------- ------- ------- ---\\.br \\NON STRESS TEST:\\. br\\Reac tive Baselin e FHR: 140 bpm, Normal\\ .br\\Tamiko iabilit y: Moderat e\\.br\\P attern: Normal\\ .br\\Fet al [employer] unt: Count Reinfor amol\\.br \\Acoust ic Stim: [...] reviewe d and the\\.br \\patien t verbali bienvenido meza. The patient has twice weekly\\ .br\\fet al [...] at\\.br\\ 3:35 pm\\.br\\ ------- ------- ------- ------- ------Ale .br\\AKHIL FLETCHER M.D.\\.b r\\----- ------- -\\.br\\S onograp [...] data .br\\Det tamela Survey\\ .br\\Ref erral from:\\. br\\ANDLisette RAJAN M.D. [facility] are\\.br \\[facility] ate Materna l Medicin e [address] [employer] [facility] [address]\\. br\\[address] [place] [address] [place] [address]\\. br\\[place] [address] Switch Crew Supervisor [phone]\\.br\\P doris: [phone] Reading Room [phone]\\.br\\F ax: Fax \\.br\\- ------- ------- ------- ------- ------- ------- ------- ------- ------- ------\\ .br\\PAT IENT INFORMA TION:\\. br\\Name : ADEEL PERDOMO MR#: [id number] 0\\.br\\A ge: 23 y/o G1 Exam Date: 013\\.br \\: 04/05/19 88 Visit #: 1\\.br\\L MP: 09/12/19 13 Locatio n: [facility]\\.br\\ [facility] are-- [place] d\\.br\\# Fetuses : 1\\.br\\I NDICATI ON: Non-suf [...] wks 33 5/7 wks 35 4/7 wks 3\\.br\\B IOMETRY :\\.br\\B PD: 86.9 mm 35 [...] us: 55.8 mm 32 Radius: 45.5 mm (\\.br\\ (11%)\\. br\\Ulna : 50.3 mm 31 Tibia: 53.9 mm 3\\.br\\ (<5%) 6 (<5%)\\. br\\Fibu la: 43.7 mm (<5%)\\. br\\PRES [...] Chamber View RVOT\\.b r\\Aorti c Arch Cardiac [place]\\.b r\\Cardi ac Positio n Heart Rate\\.b r\\Diaph ragm Stomach \\.br\\Ki dney - Left Kidney - Right\\. br\\Blad alison\\.br \\Subopt imal\\.b r\\----- -----\\. 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 The patient has once weekly\\ .br\\fet al [...] testing and a growth scan in 2\\.br\\w mohsen.\\. br\\Elec rafael clay signed by ROSA ISELA\\. br\\ANIL ABREU M.D. on 013 at\\.br\\ 4:36 pm\\.br\\ ------- ------- ------- ------- ------\\ .br\\TEQUILA EDWARDS M.D.\\.b r\\----- ------- ------- ------- ------\\ .br\\Son anisa r: Roxana Unger, RDMS Auto Diff Observa Value Referen Units Interpr Notes Date tion ce etation Range Neutrop 77.3 No % No No Feb 08 hils informa informa informa 2012 [#/volu tion [...] count Eos 1.2 No % No No Feb 08 Percent informa informa informa 2012 tion in tion in tion in 12:46 source source source AM data data data Baso 0.1 No % No No Feb 08 Percent informa informa informa 2012 tion in tion in tion in 12:46 source source source AM data data data Neut# 8.4 1.8 - x10(3)/ High No Jan 24 7.7 mcL informa 2012 tion in 12:46 source AM data Lymph# 1.8 0.6 - x10(3)/ No No Feb 08 4.8 mcL informa informa 2013 tion in tion in 12:46 source source AM data data [place]# 0.5 0.0 - x10(3)/ No No Feb 08 1.3 mcL informa informa 2013 tion in tion in 12:46 source source AM data data Eos# 0.1 0.0 - x10(3)/ No No Feb 08 0.5 mcL informa informa 2013 tion in tion in 12:46 source source AM data data Baso# 0.0 0.0 - x10(3)/ No No Feb 08 0.2 mcL informa informa 2013 tion in tion in 12:46 source source AM data data CBC Observa Value Referen Units Interpr Notes Date tion ce etation Range LEUKOCY 10.9 4.0 - x10(3)/ No No Feb 08 RUBEN 11.0 mcL informa informa 2012 tion in tion in 12:46 source source AM data data Erythro 3.91 3.80 - x10(6)/ No Feb 08 cytes 5.10 mcL informa informa 2012 [#/volu tion in tion in 12:46 me] in source source AM Blood data data by Automat ed count Hemoglo 12.6 12.0 - gm/dL No Feb 08 bin 15.6 informa informa 2012 [Mass/v tion in tion in 12:46 olume] [...] No Feb 08 cyte 34.3 informa informa 2013 mean tion in tion in 12:46 corpusc source source AM ular data data hemoglo bin [Entiti c mass] by Automat ed count Erythro 34.6 32.1 - gm/dL No Feb 08 cyte 35.3 informa informa 2012 mean tion in tion in 12:46 corpusc source source AM ular data data hemoglo bin concent ration [Mass/v olume] by Automat ed count Erythro 13.6 11.5 - % No No Feb 08 cyte 15.0 informa informa [...] of maligna ncy(ACR -Catego ry-1)RE 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
--- OUTSIDE RECORDS SUMMARY | 2017-06-07 21:28 | External Medical Summary Rpt ---
Demographics Address [address] [place] [address] Home Phone Preferred Language Unknown Marital Status Unknown Amish Affiliation Unknown Race Unknown Ethnic Group Unknown [...] [employer] honePer formed at: [facility] - [facility] [id number] [facility], [place], [place] [id number] 53Lab Directo r: Miguel Gtz MD, Phone: [phone] Codeine Negativ Cutoff= No No No Feb [...] [facility] e data data [Identi [place] fier] [id number] in [facility], [place], [place] by Probe & [id number] target 61Lab Directo amplifi r: cation Vik Guzman MD, Phone: [phone] Please Comment . No No This December [...] researc h.Perfo rmed at: - [facility] [id number] [facility], [place], [place] [id number] 61Lab Directo r: Vik Guzman MD, Phone: [phone] Microalb/Creat Ratio, Randm Ur Observa Value Referen [...] Urine data creatPerf ormed at: - [facility] [address] [id number] Tray Checker: Blade Rolle PhD, Phone: [phone] Creatinin Not mg/dL No No December [...] LTS CALLED TO: DR. ALBERTO 12/15/16 1819 [place] nda Potassium 3.5 - 5.1 mmoL/L Normal [...] data (>= 5, Archite ct Anti-HC V). [facility] are Laborat ory recomme nds collect ing [...] Testing \\.br\\Re ferral from:\\. br\\KERRY RAJAN M.D. [facility] are\\.br \\[facility]- ate Materna l Medicin e [address]\\. br\\[address] [facility] [place] [address]\\. br\\[place] [address] Pharmacy Operations Coordinator \\.br\\P doris: Reading Room \\.br\\F ax: Fax \\.br\\- ------- ------- ------- ------- ------- ------- ------- ------- ------- ------\\ .br\\PAT IENT INFORMA TION:\\. br\\Name : ADEEL PERDOMO MR#: [id number]\\.br\\A ge: 23 y/o G1 Exam Date: 013\\.br \\: 04/05/19 88 Visit #: 2\\.br\\L MP: 09/12/19 13 Locatio n: [facility]\\.br\\ [facility] are-- [place]\\.br\\# Fetuses : 1\\.br\\I NDICATI [...] y: Moderat e\\.br\\P attern: Normal\\ .br\\Fet al Swift Endeavorck-Co unt: Count Reinfor amol\\.br \\Acoust ic Stim: [...] Survey\\ .br\\Ref erral from:\\. br\\ANDLisette RAJAN M.D. [facility] are\\.br \\[facility] ate Materna l Medicin e [address] [facility] [address]\\. br\\[address] [place] [address] [place] [address]\\. br\\[place] [address] Pharmacy Operations Coordinator \\.br\\P doris: Reading Room \\.br\\F ax: Fax \\.br\\- ------- ------- ------- ------- ------- ------- ------- ------- ------- ------\\ .br\\PAT IENT INFORMA TION:\\. br\\Name : ADEEL PERDOMO MR#: [id number]\\.br\\A ge: 23 y/o G1 Exam Date: 013\\.br \\: 04/05/19 88 Visit #: 1\\.br\\L MP: 09/12/19 13 Locatio n: [facility]\\.br\\ [facility] are-- [place]\\.br\\# Fetuses : 1\\.br\\I NDICATI [...] Chamber View RVOT\\.b r\\Aorti c Arch Cardiac [place]\\.b r\\Cardi ac Positio n Heart Rate\\.b r\\Diaph ragm Stomach \\.br\\Ki dney - Left Kidney - Right\\. br\\Blad alison\\.br \\Subopt imal\\.b r\\----- -----\\. 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
[2017-06-07 22:03] LABS: URINE SQUAMOUS CELLS TNTC #/hpf (0-5)
[2017-06-07 23:50] VITALS: BP 172/112
[2017-06-08] VITALS (10 sets, daily range): BP systolic 136–163; BP diastolic 71–105
[2017-06-08] MEDS ORDERED: HUMALOG100 U/M1 SC (00:24)
--- NOTE | 2017-06-08 06:08 | RADIOLOGY REPORT PS360 ---
CT ABD PELVIS W/O CONTRAST CLINICAL INDICATION: Nausea and vomiting with abdominal pain C/O VOMITING ORDERING PHYSICIAN: Miguel Gomez MD PATIENT AGE: 27 years COMPARISON: None TECHNIQUE: Axial images obtained with sagittal and coronal reformats. PROCEDURE: Oral Contrast: None IV Contrast: None . FINDINGS: Lung bases are clear. Mild thickening of the distal esophagus nonspecific The liver, spleen, adrenal glands, pancreas, kidneys, and ureters have an unremarkable unenhanced appearance. There is a small amount of gas within the urinary bladder which could be due to recent catheterization or urinary tract infection. No intestinal obstruction or free air. No evidence of appendicitis. There is mild thickening of the cecum and ascending colon which could be due to nondistention versus mild colitis. No intestinal obstruction or free air. No pelvic mass or abnormal fluid collection. Minimal levoscoliosis of the lumbar spine. No acute bony anomalies. IMPRESSION: 1. Mild thickening of the ascending colon and cecum which could be due to nondistention or mild colitis. 2. Small amount of gas in urinary bladder which may be due to recent catheterization versus urinary tract infection. 3. Mild thickening of the distal esophagus which may be seen with esophagitis..
--- NOTE | 2017-06-08 07:26 | PHARMACY CLINIC NOTE ---
Patient Demographics Patient Demographics Admission date: 06/07/17 Date: 06/08/17 Time: 0725 Allergies Coded Allergies: aspirin (ITCHING 04/12/17) HEIGHT- FT: 5 IN: 1.00 K.702 VTE General Information Labs: Laboratory Tests 06/07 2025 Hematology Hgb (12.2 - 16.2 g/dL) 13.9 Hct (37.0 - 47.0 %) 43.4 Plt Count (142 - 424 K/mm3) 444 H Disclaimer The following section includes nursing documentation that has been pulled in for pharmacy review. Patient's VTE score: 0 Patient's VTE Risk: VERY LOW RISK Clinical trial participant? No VTE prophylaxis [id number] VTE prophylaxis ordered? Yes Type of prophylaxis/treatment: RADHA at 0725
[2017-06-08] MEDS ORDERED: ATORVASTATIN CA10 M1 PO (11:36)
[2017-06-08] MEDS ORDERED: HUMALOG MIX75/253 ML SC (11:38)
[2017-06-08] MEDS ORDERED: INSULIN GL100 UNITS/ SC (11:39)
--- NOTE | 2017-06-08 13:33 | HISTORY AND PHYSICAL REPORT ---
Demographics: Admit date: 06/07/17 Chief complaint: dka PRIMARY DIAGNOSIS: DKA Allergies: Coded Allergies: aspirin (ITCHING 04/12/17) History of present illness: History of present illness: 27 yr old female presented to ed with c/o of n/v/d, and high glucose, pt reports poor intake due to vomiting and nausea. pt states glucose being high 400s. pt admited placed on insulin drip monitor glucose and labs. ivf Past medical history: Family HX Diabetes No CAD Yes Hypertension No Hyperlipidemia No Cancer Yes TB No Immunization HX DT/Tetanus > 10 Years Ago Flu Refused Pneumonia Never Had TB Test in last year No General CAD? No Angina: No NH: No Hypertension? Yes Hyperlipidemia? No CHF? No DVT? No PE? No COPD? No Asthma? No Anemia? No GERD? No Gastric ulcers? No GI Bleed? No Hernia? No Thyroid Problems? No Hypothyroidism? No CVA? No Seizures? No Diabetes? Yes Insulin Dependent: Yes Insulin Pump: No Home FSBS? Yes Renal Insuffiency? No UTI? Yes Stones? Yes BPH? No GB Disease: No Nephritic Syndrome? No Asplenia? No Hepatitis? Yes Sickle Cell Disease? No Arthritis? No Migraines? No Cataracts? No Glaucoma? No MRSA? No HIV? No TB? No Anxiety? No Depression? No Cancer? No More? No Past Surgical HX Previous Surgery?Y BY ANGEL LUIS Current home meds: Reported Medications INSULIN LISPRO (Humalog) 0 UNITS SC ACHS INSULIN GLARGINE (Lantus 3ML Solostar Pen) 15 UNITS SC QHS Buspirone Hcl (Buspar 10MG) 10 MG PO BID Quetiapine Fumarate 50 MG PO QHS LISINOPRIL (Lisinopril) 2.5 MG PO DAILY #30 TAB Atorvastatin Calcium 10 MG PO QHS #30 TAB INSULIN NPL/INSULIN LISPRO (Humalog Mix 75-25 Kwikpen) 10 UNITS SC BID #15 ML Social Hx: Smoking HX Tobacco Yes Type Cigarettes Packs/day < 1 PACK Alcohol Alcohol: No Hx of Drug Use Drug Use? No Review of systems: Constitutional see HPI, weakness. Respiratory No: no symptoms reported. Cardiovascular No no symptoms reported Gastrointestinal/Abdominal see HPI, diarrhea, nausea, poor appetite, poor fluid intake, vomiting Genitourinary No: no symptoms reported. Musculoskeletal No: no symptoms reported. Neurological No: see HPI. Exam: Lab data for last 24 hours: Laboratory Tests 06/08/17 1207: Acetone Level SMALL 06/08/17 0957: Sodium 145, Potassium 3.8, Chloride 107, Carbon Dioxide 21 L, BUN 8, Creatinine 0.9, Estimated Creat Clear 77, Estimated GFR (MDRD) 74, Glucose 146 H, Calcium 8.2 L 06/08/17 0640: POC Glucose 160 H 06/08/17 0600: Sodium 143, Potassium 4.1, Chloride 105, Carbon Dioxide 14 L, BUN 9, Creatinine 0.9, Estimated Creat Clear 77, Estimated GFR (MDRD) 74, Glucose 206 H, Calcium 8.5, Acetone Level SMALL 06/08/17 0504: POC Glucose 135 H 06/08/17 0419: POC Glucose 92 06/08/17 0311: POC Glucose 142 H 06/08/17 0205: Sodium 143, Potassium 3.7, Chloride 106, Carbon Dioxide 16 L, BUN 11, Creatinine 1.0, Estimated Creat Clear 69, Estimated GFR (MDRD) 66, Glucose 176 H, Calcium 8.6 06/08/17 0158: POC Glucose 223 H 06/08/17 0110: POC Glucose 286 H 06/08/17 0005: POC Glucose 313 *H 06/07/17 2333: POC Glucose 292 H 06/07/17 2049: VBG pH 7.21 L, Mixed VBG pCO2 37.0 L, Mixed VBG HCO3 14.6 L 06/07/172024: Sodium 136, Potassium 4.8, Chloride 93 L, Carbon Dioxide 16 L, BUN 16, Creatinine 1.3 H, Estimated Creat Clear 56, Estimated GFR (MDRD) 48 L, Glucose 453 H, Calcium 10.0, Total Bilirubin 0.7, AST 54 H, ALT 59, Alkaline Phosphatase 177 H, Total Protein 7.8, Albumin 3.3 L, Globulin 4.5 H, Albumin/ Globulin Ratio 0.7 L, Amylase 94, Lipase 84, WBC 13.4 H, RBC 4.55, Hgb 13.9, Hct 43.4, MCV 95.5, RDW 13.1, Plt Count 444 H, MPV 7.9, Gran % 79.8, Gran # 10.7 H, Lymphocytes % 15.1, Monocytes % 4.3, Eosinophils % 0.6, Basophils % 0.2 , Lymphocytes # 2.0, Monocytes # 0.6, Eosinophils # 0.1, Basophils # 0.0, PUBS MCHC 31.9, MCH 30.5, Acetone Level SMALL 06/07/172009: Urine Color YELLOW, Urine Appearance SL CLOUDY, Urine pH 6.0, Ur Specific [place] >= 1.030, Urine Protein 2+ H, Urine Ketones 3+ H, Urine Blood 2+ H, Urine Nitrate NEGATIVE, Urine Bilirubin 2+ H, Urine Urobilinogen 0.2, Ur Leukocyte Esterase NEGATIVE, Urine RBC 5-10, Urine WBC 20-50, Ur Squamous Epith Cells TNTC, Urine Bacteria 3+, Hyaline Casts -20, Urine Glucose 2+ H 06/07/173: POC Glucose 320 *H Microbiology 06/07 2157 BLOOD: Anaerobic Blood Culture - ORD 06/07 2157 BLOOD: Aerobic Blood Culture - ORD 06/07 2157 BLOOD: Anaerobic Blood Culture - ORD 06/07 2157 BLOOD: Aerobic Blood Culture - ORD 06/07 2010 URINE CC: Urine Culture - RES Admission vital signs: 1ST Vital Signs Result Date Time Pulse Ox 100 06/07 2003 B/P 158/105 06/07 2003 Temp 98.7 06/07 2003 Pulse 135 06/07 2003 Resp 18 06/07 2003 O2 Delivery ROOM AIR 06/07 2350 Exam General appearance: normal appearance, awake, no acute distress Eyes: normal exam ENT: normal exam Neck: normal inspection, full range of motion Respiratory: normal exam, clear to auscultation, normal breath sounds, no respiratory distress ABD: normal exam, normal bowel sounds, soft Genitourinary: normal voiding & quantity Extremities: normal exam, moves all, femoral pulses Musculoskeletal: normal exam Skin: normal exam, intact, warm Neuro: normal exam, alert, intact, oriented Plan: Problem List 1. DKA (diabetic ketoacidoses) Plan: rounded with nilda jay insulin until acetone neg at 1332
[2017-06-09] VITALS (16 sets, daily range): BP systolic 109–176; BP diastolic 73–119
[2017-06-09 07:35] LABS: LYMPH # 2.1 K/mm3 (0.7-4.5); LYMPH % 14.1 % (10-50.0)
[2017-06-09 07:49] LABS: HEMOGLOBIN 12.1 g/dL (12.2-16.2)
--- NOTE | 2017-06-09 08:37 | ACUTE CARE PROGRESS NOTE (QUA) ---
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 DKA (diabetic ketoacidoses) Patient condition Stable Plan: order additional tests This inpt stay is expected to cross 2 MNs from start of care Yes Comments: pt still with dec po intake and odor of acetone this am and with dec k and will check serum ketone and give kcl Antibiotic Stewardship (2) Current Culture Results Microbiology 06/07 2157 BLOOD: Anaerobic Blood Culture - ORD 06/07 2157 BLOOD: Aerobic Blood Culture - ORD 06/07 2010 URINE CC: Urine Culture - COMP at 0836
--- NOTE | 2017-06-09 08:37 | ACUTE CARE PROGRESS NOTE (QUA) ---
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 DKA (diabetic ketoacidoses) Patient condition Stable Plan: order additional tests This inpt stay is expected to cross 2 MNs from start of care Yes Comments: pt still with dec po intake and odor of acetone this am and with dec k and will check serum ketone and give kcl Antibiotic Stewardship (2) Current Culture Results Microbiology 06/07 2157 BLOOD: Anaerobic Blood Culture - ORD 06/07 2157 BLOOD: Aerobic Blood Culture - ORD 06/07 2010 URINE CC: Urine Culture - COMP at 0836
[2017-06-09 10:41] LABS: NEUTROPHILS 79 % (42-76)
[2017-06-10] VITALS (8 sets, daily range): BP systolic 92–146; BP diastolic 59–92
--- NOTE | 2017-06-10 08:14 | ACUTE CARE PROGRESS NOTE (QUA) ---
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 DKA (diabetic ketoacidoses) Patient condition Improving Plan: continue current care This inpt stay is expected to cross 2 MNs from start of care Yes Comments: inc activity at 0813
--- NOTE | 2017-06-10 08:14 | ACUTE CARE PROGRESS NOTE (QUA) ---
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 DKA (diabetic ketoacidoses) Patient condition Improving Plan: continue current care This inpt stay is expected to cross 2 MNs from start of care Yes Comments: inc activity at 0813
--- NOTE | 2017-06-10 14:03 | CONSULT NOTE ---
Standard Demographics Patient Demo Date of Consultation: 06/10/17 Referring Provider: Brennan Gomez MD Reason for Consultation: nausea, vomiting, and epigastric pain PRIMARY DIAGNOSIS: DKA Allergies: Coded Allergies: aspirin (ITCHING 04/12/17) History of Present Illness Chief Complaint: Epigastric pain, nausea, and vomiting History of Present Illness: This is a 27-year-old female seen in consultation from Dr. Gomez for evaluation regarding epigastric pain, nausea, and intermittent emesis. She presented to the emergency department on the evening of the with complaints of nausea, vomiting, and occasional diarrhea. She states that her sugar levels were "out of control". She continues to complain of pain mostly in the epigastric region that she describes as "sharp and burning". He does have occasional gastroesophageal reflux. In addition, she states that over the past "week or so" she has had fairly significant nausea and "even throw(s) up at the smell of food". No fevers. No jaundice. Past Medical History Reports: diabetes mellitus. Surgical History Previous Surgery?Y [place] BY [facility] Allergies Coded Allergies: aspirin (ITCHING 04/12/17) Medications: Reported Medications INSULIN LISPRO (Humalog) 0 UNITS SC ACHS INSULIN GLARGINE (Lantus 3ML Solostar Pen) 15 UNITS SC BIDD Buspirone Hcl (Buspar 10MG) 10 MG PO BID Quetiapine Fumarate 50 MG PO QHS LISINOPRIL (Lisinopril) 2.5 MG PO DAILY #30 TAB Atorvastatin Calcium 10 MG PO QHS #30 TAB Family history Postive for: HTN. Smoking Hx Tobacco: Yes Smoker: Current Every Day Smoker Type: Cigarettes Packs/day: < 1 Pack Are you/the child exposed to second-hand smoke: Yes Alcohol Alcohol: No Hx of Drug Use Drug Use? No Review of Systems Constitutional No: fatigue. Skin No: bruising. Immune/allergy No: anaphalaxis. Eyes No: discharge. ENT No: nose bleed. Respiratory No: pneumonia. Cardiovascular No: palpitations. GI Positive for: nausea, vomitting. No: hematemeis, hematochezia, melena. (female) No: hematuria. Heme No: petechia. Neurological No: change in LOC. Psychiatric No: anxious. Physical Exam VS/I&O Vital Signs Date Time Temp Pulse Resp B/P Pulse O2 O2 Flow FiO2 Ox Delivery Rate 06/10 0815 97.9 80 16 121/76 99 06/10 0800 97.9 80 16 121/76 99 ROOM AIR 06/10 0500 90 16 114/75 97 ROOM AIR 06/10 0409 97.8 94 16 123/82 98 06/10 0300 94 16 123/82 98 ROOM AIR 06/10 0100 92 16 92/59 97 ROOM AIR 06/09 2300 92 16 122/86 100 ROOM AIR 06/09 2100 90 16 122/83 98 ROOM AIR 06/09 1957 97.8 112 16 160/119 100 06/09 1900 97.8 119 16 168/112 100 ROOM AIR 06/09 1743 98.7 94 18 142/97 100 06/09 1700 94 18 142/97 100 ROOM AIR 06/09 1500 102 20 147/101 97 ROOM AIR I&O 06/10 0700 Intake Total 240 Output Total Balance 240 Intake, Oral 240 Patient 55.962 kg Weight Exam General appearance no acute distress Respiratory no distress Cardiovascular regular rate and rhythm Abdomen soft (+ TTP in epigastrum) Findings/Data CT A/P: revealed mild thickening of the distal esophagus and mild thickening of the RIGHT colon (possible nondistention) Plan Plan: Impression: Epigastric pain Nausea with emesis Gastroesophageal reflux Hypokalemia DKA Plan: 1) PPI 2) EGD in AM 3) further evaluation pending results of EGD, but may include RIGHT upper quadrant ultrasound, UGI/SBFT, gastric emptying scan, etc. at 2067
[2017-06-11] VITALS (15 sets, daily range): BP systolic 108–136; BP diastolic 68–89
--- NOTE | 2017-06-11 07:06 | SURGEON PROGRESS NOTE ---
Subjective data Subjective data: Feels "about the same". Objective data Vitals,I&O,and Labs: Vital signs, intake and output,and available lab data for the last 24 hours is as noted below. Vital Signs Date Time Temp Pulse Resp B/P Pulse O2 O2 Flow FiO2 Ox Delivery Rate 06/11 0430 98.4 97 16 108/70 97 ROOM AIR 06/11 0236 97.5 98 16 110/70 100 06/11 0030 98.6 99 16 119/83 100 ROOM AIR 06/10 2025 97.5 98 16 110/70 100 ROOM AIR 06/10 1548 98.5 93 18 146/92 99 ROOM AIR 06/10 0815 97.9 80 16 121/76 99 06/10 0800 97.9 80 16 121/76 99 ROOM AIR 06/10 1500 06/10 2300 06/11 0700 Intake Total 1514 Output Total Balance 1514 Intake, IV 1394 Intake, Oral 120 Output, Stool Laboratory Tests Test Result Date Time Blood Gas VBG pH (MMOL/L) 7.21 06/07 2049 Mixed VBG pCO2 (MMHG) 37.0 06/07 2049 Mixed VBG HCO3 (MMOL/L) 14.6 06/07 2049 Chemistry Sodium (mmoL/L) 144 06/10 906 Potassium (mmoL/L) 3.5 06/10 1955 Chloride (mmoL/L) 107 06/10 906 Carbon Dioxide (mmoL/L) 27 06/10 906 BUN (mg/dL) 3 06/10 906 Creatinine (mg/dL) 1.0 06/10 906 Estimated Creat Clear (ML/MIN) 73 06/10 906 Estimated GFR (MDRD) (ML/MIN) 66 06/10 906 Glucose (mg/dL) 55 06/10 1955 POC Glucose (mg/dl) 89 06/11 616 Calcium (mg/dL) 8.0 06/10 906 Total Bilirubin (mg/dL) 0.7 06/07 2025 AST (U/L) 54 06/07 2025 ALT (U/L) 59 06/07 2025 Alkaline Phosphatase (U/L) 177 06/07 2025 Creatine Kinase (U/L) 43 06/09 215 CK-MB (CK-2) Rel Index (U/L) 1.2 06/09 215 CK and CKMB Interp (ng/mL) < 0.5 06/09 215 Troponin I (ng/mL) < 0.02 06/09 215 Total Protein (gm/dL) 7.8 06/07 2025 Albumin (gm/dL) 3.3 06/07 2025 Globulin (gm/dL) 4.5 06/07 2025 Albumin/Globulin Ratio 0.7 06/07 2025 Amylase (U/L) 94 06/07 2025 Lipase (U/L) 84 06/07 2025 Hematology WBC (K/MM3) 15.1 06/09 722 RBC (M/mm3) 3.95 06/09 722 Hgb (g/dL) 12.1 06/09 722 Hct (%) 36.1 06/09 722 MCV (fl) 91.4 06/09 722 RDW (%) 12.9 06/09 722 Plt Count (K/mm3) 312 06/09 722 MPV (fl) 7.6 06/09 722 Gran % (%) 82.1 06/09 722 Gran # (K/mm3) 12.4 06/09 722 Total Counted (#CELLS) 100 06/09 722 Lymphocytes % (%) 14.1 06/09 722 Monocytes % (%) 3.0 06/09 722 Eosinophils % (%) 0.6 06/09 722 Basophils % (%) 0.1 06/09 722 Neutrophils (%) 79 06/09 722 Lymphocytes (Manual) (%) 18 06/09 722 Lymphocytes # (K/mm3) 2.1 06/09 722 Monocytes (Manual) (%) 2 06/09 722 Monocytes # (K/mm3) 0.5 06/09 722 Eosinophils # (K/mm3) 0.1 06/09 722 Basophils # (K/MM3) 0.0 06/09 722 RBC/WBC/PLT Morphology NORMAL 06/09 722 Atypical Lymphocytes (%) 1 06/09 722 Platelet Estimate NORMAL 06/09 722 PUBS MCHC (g/dl) 33.1 06/09 722 Immunology MCH (pg) 30.2 06/09 722 Toxicology Acetone Level NONE DETECTED 06/11 605 Urines Urine Color YELLOW 06/07 2010 Urine Appearance SL CLOUDY 06/07 2010 Urine pH 6.0 06/07 2010 Ur Specific [place] >= 1.030 06/07 2010 Urine Protein (mg/dL) 2+ 06/07 2010 Urine Ketones (mg/dL) 3+ 06/07 2010 Urine Blood 2+ 06/07 2010 Urine Nitrate NEGATIVE 06/07 2010 Urine Bilirubin 2+ 06/07 2010 Urine Urobilinogen (E.U./dL) 0.2 06/07 2010 Ur Leukocyte Esterase NEGATIVE 06/07 2010 Urine RBC (rbc/hpf) 5-10 06/07 2010 Urine WBC (wbc/hpf) 20-50 06/07 2010 Ur Squamous Epith Cells (#/hpf) TNTC 06/07 2010 Urine Bacteria 3+ 06/07 2010 Hyaline Casts (#/lpf) 10-20 06/07 2010 Urine Glucose 2+ 06/07 2010 Assessment findings Assessment Exam General appearance: no acute distress Cardiovascular: regular rate & rhythm Respiratory: no respiratory distress ABD: soft Patient plan Diagnoses: Gastroesophageal reflux Epigastric pain Plan: EGD this morning Additional data: ? GES (as outpatient) ? RUQ US (as outpatient) ? SBFT (as outpatient) at 0706
--- NOTE | 2017-06-11 07:40 | Operative Note ---
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 She continues to have complaints of epigastric pain and reflux and the surgical service was consulted for EGD. Findings: Severe ulcerative distal esophagitis with possible candidal overgrowth (versus exudative change) Moderate gastritis Procedure Description: After informed consent was obtained, the patient was taken to the endoscopy suite. IV sedation ensued after she was transferred to the LEFT lateral decubitus position. The gastroscope was advanced. Severe distal esophagitis with linear ulceration was noted. Exudative change versus possible candidal overgrowth was noted. Some of this tissue easily that further evaluation was deemed unwarranted as it was creating mucosal injury. The stomach was entered. Moderate gastritis was noted. No active bleeding or ulceration was seen. A biopsy of the antrum was obtained. The pylorus was intubated. The duodenal mucosa appeared relatively normal. The gastroscope was carefully removed and the patient was transferred to recovery. EBL (ml): 1 Anesthesia: IV sedation with 8 mg of Versed and 200 g of fentanyl Complications: No immediate Specimens: Antral biopsy Disposition Disposition: Stable to recovery from where she will be transferred back to the floor. She will continue proton pump inhibition. Carafate will be started. Diflucan for possible candidal overgrowth also be started. She will follow-up in one week for reevaluation and will require repeat EGD in 6-8 weeks. at 0740
--- NOTE | 2017-06-11 08:07 | ACUTE CARE PROGRESS NOTE (QUA) ---
Progress Notes Subjective Date 06/11/17 Time 0805 Note still with abd pain Patient/family reports: stomach pain Nursing reports: no complaints Objective Findings Last VS-Temp:98.4 B/P:109/78 Pulse:93 Resp:16 SaO2:95 OXYGEN Last weight lbs:123 oz:6 K.962 Method:Bed Scales Exam General appearance: alert, awake Eyes: anicteric, PERRLA ENT: dry mucous membranes Neck: no JVD Cardiovascular: regular rate & rhythm, no murmur Respiratory: no respiratory distress ABD: soft, no organomegaly, tenderness Genitourinary: no hematuria Extremities: moves all Musculoskeletal: equal muscle strength Skin: dry Neuro: alert, toy stuffer II-XII nml as tested Reviewed: allergies, medications, vital signs, lab results, consult note Assessment/Plan Problem List 1. DKA (diabetic ketoacidoses) 2. Gastritis Patient condition Stable Plan: make medication changes This inpt stay is expected to cross 2 MNs from start of care Yes Comments: will treat with ppi and carafate and diflucan at 0807
--- NOTE | 2017-06-11 08:07 | ACUTE CARE PROGRESS NOTE (QUA) ---
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 DKA (diabetic ketoacidoses) 2. Gastritis Patient condition Stable Plan: make medication changes This inpt stay is expected to cross 2 MNs from start of care Yes Comments: will treat with ppi and carafate and diflucan at 0807
[2017-06-12 00:22] VITALS: BP 122/80
[2017-06-12 04:41] VITALS: BP 131/92
[2017-06-12 07:43] VITALS: BP 129/94; BP 131/92
[2017-06-12 08:22] VITALS: BP 129/94
--- NOTE | 2017-06-12 09:27 | SURGEON PROGRESS NOTE ---
Subjective data Subjective data: ADEEL PERDOMO is a 27 F .Patient denies complaint of nausea and vomitting.She reports her last pain level as 0 on a 0-10 pain scale. Patient states substernal burning and epigastric discomfort persists but is improving. Tolerating diabetic diet. Assessment findings Assessment Exam General appearance: normal appearance, alert ABD: soft Patient plan Plan: Med therapy Additional data: Continue medical therapy for erosive esophagitis. at 9721
--- NOTE | 2017-06-12 12:06 | ACUTE CARE PROGRESS NOTE (QUA) ---
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 DKA (diabetic ketoacidoses) 2. Gastritis Patient condition Improving Plan: initiate discharge plan This inpt stay is expected to cross 2 MNs from start of care Yes Comments: will review and hope to d/c with close follow up Antibiotic Stewardship (2) Current Culture Results Microbiology 06/07 2157 BLOOD: Anaerobic Blood Culture - CAN Cancelled: Auto-cancelled after 3 days. 06/07 2157 BLOOD: Aerobic Blood Culture - CAN Cancelled: Auto-cancelled after 3 days. 06/07 2010 URINE CC: Urine Culture - COMP at 1206
--- NOTE | 2017-06-12 12:06 | ACUTE CARE PROGRESS NOTE (QUA) ---
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 DKA (diabetic ketoacidoses) 2. Gastritis Patient condition Improving Plan: initiate discharge plan This inpt stay is expected to cross 2 MNs from start of care Yes Comments: will review and hope to d/c with close follow up Antibiotic Stewardship (2) Current Culture Results Microbiology 06/07 2157 BLOOD: Anaerobic Blood Culture - CAN Cancelled: Auto-cancelled after 3 days. 06/07 2157 BLOOD: Aerobic Blood Culture - CAN Cancelled: Auto-cancelled after 3 days. 06/07 2010 URINE CC: Urine Culture - COMP at 1206
[2017-06-12 12:11] VITALS: BP 116/87
[2017-06-12] MEDS ORDERED: CARAFATE1 GM/10 ML PO ×2 (13:16→14:23)
[2017-06-12] MEDS ORDERED: DIFLUCAN 100MG100 MG PO ×2 (13:16→14:23)
[2017-06-12] MEDS ORDERED: PROTONIX 40MG T40 MG PO ×2 (13:16→14:23)
--- NOTE | 2017-06-12 13:21 | DISCHARGE SUMMARY STANDARD ---
Demographics Admit date: 06/07/17 Discharge date: 06/12/17 History of present illness History of present illness 27 yr old female presented to ed with c/o of n/v/d, and high glucose, pt reports poor intake due to vomiting and nausea. pt states glucose being high 400s. pt admited placed on insulin drip monitor glucose and labs. ivf Hospital Course Hospital Course: pt with slow improvement on dka orders with slow improvement with ivf and insulin and continues to have upper abd pain and seen by surg with erosive esophagitis Discharge diagnoses Problem List 1. DKA (diabetic ketoacidoses) 2. Gastritis 3. Diabetes mellitus, insulin dependent (IDDM), controlled Medications Medications: Discharge meds are as noted. Comment: will see in office in 2-3 days for close follow up with us and surg Follow up Follow up in office in: 3 DAYS with: Hunter Hilton APRN Comment: will see in office to discuss diabetes at 1320
[2017-06-12 15:33] VITALS: BP 116/87
== END 2017-06-12 15:24 | disposition home or self-care (01) | DRG 639 ==
LOC: ER 19:49 → 2ND 21:24 → ER 21:24 → 2ND 23:12
PROVIDERS: Emergency Medicine; Surgery
PROC: 0DB68ZX Excision of Stomach, Via Natural or Artificial Opening Endoscopic, Diagnostic (ICD-10-PCS; principal; 2017-06-11 07:21)
DX: E11.10 Type 2 diabetes mellitus with ketoacidosis without coma (principal); I10 Essential (primary) hypertension; Z79.4 Long term (current) use of insulin; Z72.0 Tobacco use; K29.70 Gastritis, unspecified, without bleeding
CPT/HCPCS: J2405